=== PATIENT | female | born 1995 | race Caucasian/White ===

== ENCOUNTER 2016-05-26 12:48 | Inpatient (IN) ==
[2016-05-26 13:59] LABS: Bilirubin,Urine Negative (Negative); Blood,Urine Negative (Negative); Clarity,Urine Cloudy (Clear); Color,Urine Yellow (Yellow); Glucose,Urine (UA) Normal (Normal); Ketones,Urine Negative (Negative); Leukocyte Esterase,Urine Negative (Negative); Nitrite,Urine Negative (Negative); Protein,Urine Negative (Neg-Trace); Specific Gravity,Urine 1.016 (1.010-1.025); Urobilinogen,Urine Normal (Normal)
[2016-05-26 14:02] LABS: Bacteria,Urine Many per hpf (None-Few); Squamous Epithelial Cell,Urine Many per lpf (None-Few); WBC,Urine 15-30 per hpf (0-3)
--- NOTE | 2016-05-26 14:02 | Emergency Department Note ---
Disposition Clinical Impression: Suicidal ideation, Depression Disposition: Admitted As Inpatient Referrals: NO,PCP [Primary Care Provider] - Forms: ED Satisfaction Letter General Adult HPI - General Chief complaint: ED Psychiatric Symptoms Stated complaint: SI Time Seen by Provider: 05/26/16 13:42 Source: patient Limitations: no limitations - History of Present Illness HPI Narrative: 20-year-old female who has a history of chronic depression and reports her antidepressant medication is not working anymore. She feels suicidal. She has not injured herself in any way. She has no physical complaints. The patient denies at this time. There is no history of anxiety. No confusion. No psychosis. The patient denies chest pain shortness of breath abdominal pain vomiting or diarrhea. No back pain headache neck stiffness rash or fever reported or noted. The patient has had no falls or injuries she has not attempted to overdose. The patient denies any other acute complaints or concerns. Onset (ago): day(s) Pain Scale: 0 - Related Data Allergies Allergy/AdvReac Type Severity Reaction Status Date / Time No Known Allergies Allergy Verified 05/26/16 13:00 All systems ED: reviewed and negative except as stated. Past Medical History - Past Medical History Medical history: Reports: other (Depression) Psychiatric history: Reports: anxiety, depression, other - Social History Smoking Status: Never smoker Alcohol use: Reports: none Drug use: Reports: none Physical Exam - General Limitations: no limitations General appearance: alert - Head Head exam: atraumatic, normocephalic, normal inspection - Eye Eye exam: Present: normal appearance, PERRL, EOMI - ENT ENT exam: normal exam, normal oropharynx, mucous membranes moist - Neck Neck exam: Present: normal inspection, full ROM, trachea midline - Chest Chest inspection: Present: symmetric chest wall rise. Absent: tenderness - Respiratory Respiratory exam: Present: normal lung sounds bilaterally. Absent: respiratory distress - Cardiovascular Cardiovascular exam: Present: regular rate, normal rhythm, normal heart sounds - Abdominal Exam Abdominal exam: Present: soft, Non-Tender. Absent: tenderness, distention, guarding, rebound, rigidity - Extremities Exam Extremities exam: Present: normal inspection, full ROM, normal capillary refill. Absent: tenderness, pedal edema, joint swelling, calf tenderness - Expanded Lower Extremity Exam Neurovascular/Tendon exam: Absent: motor deficit, sensory deficit, tendon deficit - Back Exam Back exam: Present: normal inspection, full ROM. Absent: tenderness, CVA tenderness (R), CVA tenderness (L), vertebral tenderness - Neurological Exam Neurological exam: Present: alert, oriented X3, CN II-XII intact. Absent: motor sensory deficit - Psychiatric Psychiatric exam: Present: normal affect - Skin Skin exam: Present: warm, dry, intact, normal color. Absent: rash, cyanosis, diaphoresis, erythema, pallor, mottled Course Vital Signs Temperature 98.2 F 05/26/16 12:55 Pulse Rate 78 05/26/16 12:55 Respiratory Rate 16 05/26/16 12:55 Blood Pressure 112/75 05/26/16 12:55 O2 Sat by Pulse Oximetry 97 05/26/16 12:55 Temperature 98.2 F 05/26/16 12:55 Pulse Rate 78 05/26/16 12:55 Respiratory Rate 16 05/26/16 12:55 Blood Pressure 112/75 05/26/16 12:55 O2 Sat by Pulse Oximetry 97 05/26/16 12:55 Oxygen Delivery Oxygen Delivery Room Air Medical Decision Making - MDM Narrative Medical decision making narrative: The patient has a long history of depression, she seems to be more depressed and is now suicidal per history. 1A has been consulted for psychiatric evaluation. The patient is being admitted to the psychiatric service. - Lab Data Lab results reviewed: Yes I reviewed the patient's lab results. Result diagrams: 05/26/16 14:13 05/26/16 14:13 Lab Results 05/26/16 05/26/16 05/26/16 Range/Units 13:06 13:06 14:13 WBC 6.7 (4.3-11.1) K/mcL RBC 5.08 H (3.82-4.97) M/mcL Hgb 14.5 (11.5-15.4) g/dL Hct 44.6 (35.3-44.9) % MCV 87.8 (83.0-100.0) fL MCH 28.5 (28.0-33.3) pg MCHC 32.5 (31.6-35.5) g/dL RDW 12.6 (11.5-14.5) % Plt Count 268 (140-400) K/mcL MPV 11.0 (9.4-12.4) fL Immature Gran % 0.3 (0-4) % Seg Neutrophils % 60.0 % Lymphocytes % 29.4 % Monocytes % 9.6 % Eosinophils % 0.4 % Basophils % 0.3 % Neutrophils # 4.0 (1.6-8.9) K/mcL Lymphocytes # 2.0 (0.6-4.6) K/mcL Monocytes # 0.6 (0.0-1.3) K/mcL Eosinophils # 0.0 (0.0-0.6) K/mcL Basophils # 0.0 (0.0-0.2) K/mcL Sodium (136-145) mEq/L Potassium (3.5-4.5) mEq/L Chloride (98-109) mEq/L Carbon Dioxide (19-29) mEq/L BUN (7-20) mg/dL Creatinine (0.57-1.11) mg/dL Est GFR ( Amer) (> 60) Est GFR (Non-Af Amer) (> 60) BUN/Creatinine Ratio (6-26) Glucose (70-99) mg/dL Calculated Osmolality (280-300) Calcium (8.6-10.8) mg/dL Ur Specimen Adequacy See below A Urine Color Yellow (Yellow) Urine Clarity Cloudy A (Clear) Urine pH 7.0 (5.0-8.0) pH Units Ur Specific [place] 1.016 (1.010-1.025) Urine Protein Negative (Neg-Trace) mg/dL Urine Glucose (UA) Normal (Normal) mg/dL Urine Ketones Negative (Negative) mg/dL Urine Blood Negative (Negative) Urine Nitrite Negative (Negative) Urine Bilirubin Negative (Negative) Urine Urobilinogen Normal (Normal) mg/dL Ur Leukocyte Esterase Negative (Negative) Urine Microscopic RBC 0-3 (0-3) per hpf Urine Microscopic WBC 15-30 H (0-3) per hpf Ur Squamous Epith Cells Many H (None-Few) per lpf Ur Transition Epith Cell Few (None-Few) per hpf Urine Bacteria Many H (None-Few) per hpf Hyaline Casts Test Not Performed Urine Mucus Few (Few) Salicylates (15-30) mg/dL Urine Opiates Screen Negative (Ewdfno=825) ng/mL Acetaminophen (10-30) mcg/mL Ur Barbiturates Screen Negative (Wvpbqs=504) ng/mL Ur Phencyclidine Scrn Negative (Cutoff=25) ng/mL Ur Amphetamines Screen Negative (Cugoqy=1156) ng/mL U Benzodiazepines Scrn Negative (Xeodag=697) ng/mL Urine Cocaine Screen Negative (Cutoff= 300) ng/mL U Marijuana (THC) Screen Negative (Cutoff = 50) ng/mL Ethyl Alcohol (0-10) mg/dL 05/26/16 Range/Units 14:13 WBC (4.3-11.1) K/mcL RBC (3.82-4.97) M/mcL Hgb (11.5-15.4) g/dL Hct (35.3-44.9) % MCV (83.0-100.0) fL MCH (28.0-33.3) pg MCHC (31.6-35.5) g/dL RDW (11.5-14.5) % Plt Count (140-400) K/mcL MPV (9.4-12.4) fL Immature Gran % (0-4) % Seg Neutrophils % % Lymphocytes % % Monocytes % % Eosinophils % % Basophils % % Neutrophils # (1.6-8.9) K/mcL Lymphocytes # (0.6-4.6) K/mcL Monocytes # (0.0-1.3) K/mcL Eosinophils # (0.0-0.6) K/mcL Basophils # (0.0-0.2) K/mcL Sodium 139 (136-145) mEq/L Potassium 3.9 (3.5-4.5) mEq/L Chloride 105 (98-109) mEq/L Carbon Dioxide 23 (19-29) mEq/L BUN 8 (7-20) mg/dL Creatinine 0.77 (0.57-1.11) mg/dL Est GFR ( Amer) > 60 (> 60) Est GFR (Non-Af Amer) > 60 (> 60) BUN/Creatinine Ratio 10 (6-26) Glucose 81 (70-99) mg/dL Calculated Osmolality 285 (280-300) Calcium 9.4 (8.6-10.8) mg/dL Ur Specimen Adequacy Urine Color (Yellow) Urine Clarity (Clear) Urine pH (5.0-8.0) pH Units Ur Specific [place] (1.010-1.025) Urine Protein (Neg-Trace) mg/dL Urine Glucose (UA) (Normal) mg/dL Urine Ketones (Negative) mg/dL Urine Blood (Negative) Urine Nitrite (Negative) Urine Bilirubin (Negative) Urine Urobilinogen (Normal) mg/dL Ur Leukocyte Esterase (Negative) Urine Microscopic RBC (0-3) per hpf Urine Microscopic WBC (0-3) per hpf Ur Squamous Epith Cells (None-Few) per lpf Ur Transition Epith Cell (None-Few) per hpf Urine Bacteria (None-Few) per hpf Hyaline Casts Urine Mucus (Few) Salicylates < 5.0 L (15-30) mg/dL Urine Opiates Screen (Bsnaao=296) ng/mL Acetaminophen < 1.0 L (10-30) mcg/mL Ur Barbiturates Screen (Pzmchu=744) ng/mL Ur Phencyclidine Scrn (Cutoff=25) ng/mL Ur Amphetamines Screen (Petadh=6781) ng/mL U Benzodiazepines Scrn (Pbqunm=619) ng/mL Urine Cocaine Screen (Cutoff= 300) ng/mL U Marijuana (THC) Screen (Cutoff = 50) ng/mL Ethyl Alcohol < 10 (0-10) mg/dL
[2016-05-26 14:06] LABS: Amphetamine Screen,Urine Negative ng/mL (Cutoff=1000); Barbiturate Screen,Urine Negative ng/mL (Cutoff=200); Benzodiazepines Screen,Urine Negative ng/mL (Cutoff=200); Cannabinoid Screen,Urine Negative ng/mL (Cutoff = 50); Cocaine Screen,Urine Negative ng/mL (Cutoff= 300); Opiate Screen,Urine Negative ng/mL (Cutoff=300); Phencyclidine Screen,Urine Negative ng/mL (Cutoff=25)
[2016-05-26 14:15] LABS: Mucus,Urine Few (Few)
[2016-05-26 14:16] LABS: RBC,Urine 0-3 per hpf (0-3); Transitional Epi Cells,Urine Few per hpf (None-Few)
[2016-05-26 14:30] LABS: Basophils % 0.3 %; Eosinophils % 0.4 %; Hematocrit 44.6 % (35.3-44.9); Hemoglobin 14.5 g/dL (11.5-15.4); Immature Granulocytes % 0.3 % (0-4); Lymphocytes % 29.4 %; Mean Corpuscular HGB Conc 32.5 g/dL (31.6-35.5); Mean Corpuscular Hemoglobin 28.5 pg (28.0-33.3); Mean Corpuscular Volume 87.8 fL (83.0-100.0); Monocytes # 0.6 K/mcL (0.0-1.3); Monocytes % 9.6 %; Platelet Count 268 K/mcL (140-400); Red Blood Count 5.08 M/mcL (3.82-4.97); Red Cell Distribution Width 12.6 % (11.5-14.5)
[2016-05-26 14:44] LABS: Acetaminophen < 1.0 mcg/mL (10-30); BUN/Creatinine Ratio 10 (6-26); Blood Urea Nitrogen 8 mg/dL (7-20); Calcium 9.4 mg/dL (8.6-10.8); Carbon Dioxide 23 mEq/L (19-29); Chloride 105 mEq/L (98-109); Ethanol < 10 mg/dL (0-10); Glucose 81 mg/dL (70-99); Osmolality,Calculated 285 (280-300); Potassium 3.9 mEq/L (3.5-4.5); Salicylate < 5.0 mg/dL (15-30); Sodium 139 mEq/L (136-145); eGFR For African Americans > 60 (> 60); eGFR For Non-African Americans > 60 (> 60)
[2016-05-26] MEDS ORDERED: Haloperidol Lactate 5 MG/ML VIAL IM PRN (17:54)
[2016-05-26] MEDS ORDERED: MOM Conc 10 ML UD.LIQ PO PRN (17:54)
[2016-05-26] MEDS ORDERED: Mag Hydrox/Al Hydrox/Simeth 30 ML UDC PO PRN (17:54)
[2016-05-26] MEDS ORDERED: *HR* LORazepam 1 MG TABLET PO PRN (17:54)
[2016-05-26] MEDS ORDERED: Ibuprofen 400 MG TABLET PO PRN (17:54)
[2016-05-26] MEDS ORDERED: *HR* LORazepam 2 MG/ML VIAL IM PRN (17:54)
[2016-05-27] MEDS: lamoTRIgine 100 MG TABLET PO SCH (08:58)
--- NOTE | 2016-05-27 15:12 | Psychiatry History & Physical ---
Date of Encounter: 05/28/16 Time of Encounter: 15:10 History of Present Illness Patient Stated Chief Complaint: depressed and suicidal Medicare Admission Attestation: For traditional Medicare patients the provided hospital inpatient services are reasonable and necessary and in the case of services not specified as inpatient -only under 42 CFR 419.22 (n), that they are appropriately provided as inpatient services in accordance 42 CFR 412.3. For Critical Access Hospital the patient may reasonably be expected to be discharged or transferred to a hospital within 96 hours after admission to the Critical Access Hospital. Admitted From: Emergency Dept Plans for Post Hospital Care: Home History of Present Illness: Ms. Del Castillo is a 20 year old female , this was the first psychiatric admission for this 20 years old female, she lists several stressors leading to her admission. She states she had a breakup with her boyfriend a week and half ago, she is dependent on him and this was devastating to her. Currently she lives with her mother and she does not get along well with mother. She reports feeling hopeless and having suicidal suicidal thoughts without plan. She was given venlafaxine and Lamictal by her primary care physician for the past 2 months and she felt better on this medication but now feels it is not adequate. She is complaining of poor sleep and anxiety about being in the hospital. Past Med Surg Social Fam HX - Past Medical History Medical history: other - Social History Smoking Status: Never smoker Smokeless Tobacco Status: No Alcohol use: none Drug use: none Medications & Allergies Lamotrigine [Lamictal] 100 mg PO DAILY 05/26/16 [History] Venlafaxine XR (24 HR) [Effexor XR] 75 mg PO DAILY 05/26/16 [History] Allergies No Known Allergies Allergy (Verified 05/26/16 13:00) Review of Systems Psychiatric: Reports: anxiety, abnormal sleep pattern, suicidal ideation, change in appetite, hopelessness, mood swings Mental Status Exam Patient orientation: Yes Person, Yes Time, Yes Place, Yes Circumstance Level of alertness: Alert Patient appearance: Appropriate, Well-nourished Behavior: cooperative, anxious Psychomotor activity: Slowed Eye contact: Minimal Contact Mood description: Depressed, Anxious Patient description of mood: Depressed and anxious this is her first hospitalization and she is uncomfortable. But she is interested in getting help and her medication and just. Affect description: congruent with mood, constricted Speech pattern: Normal rate, Normal rhythm, Normal tone, Coherent Speech volume: Soft/Quiet Thought process: Intact, Logical, Linear, Goal Oriented Thought content: Yes Suicidal ideation, Yes Obsessive thoughts Attention span: Capable of Focused Attention Memory description: Grossly Intact Patient reliability: Reliable Historian Intelligence estimate: Average Judgment: Good Insight: Full Results - Vital Signs Vital signs: Temp Pulse Resp BP Pulse Ox 97.9 F 111 18 113/82 97 05/27/16 09:00 05/27/16 09:00 05/27/16 09:00 05/27/16 09:00 05/26/16 12:55 - Labs Labs: Laboratory Last Values WBC 6.7 K/mcL (4.3-11.1) 05/26/16 14:13 RBC 5.08 M/mcL (3.82-4.97) H 05/26/16 14:13 Hgb 14.5 g/dL (11.5-15.4) 05/26/16 14:13 Hct 44.6 % (35.3-44.9) 05/26/16 14:13 MCV 87.8 fL (83.0-100.0) 05/26/16 14:13 MCH 28.5 pg (28.0-33.3) 05/26/16 14:13 MCHC 32.5 g/dL (31.6-35.5) 05/26/16 14:13 RDW 12.6 % (11.5-14.5) 05/26/16 14:13 Plt Count 268 K/mcL (140-400) 05/26/16 14:13 MPV 11.0 fL (9.4-12.4) 05/26/16 14:13 Immature Gran % 0.3 % (0-4) 05/26/16 14:13 Seg Neutrophils % 60.0 % 05/26/16 14:13 Lymphocytes % 29.4 % 05/26/16 14:13 Monocytes % 9.6 % 05/26/16 14:13 Eosinophils % 0.4 % 05/26/16 14:13 Basophils % 0.3 % 05/26/16 14:13 Neutrophils # 4.0 K/mcL (1.6-8.9) 05/26/16 14:13 Lymphocytes # 2.0 K/mcL (0.6-4.6) 05/26/16 14:13 Monocytes # 0.6 K/mcL (0.0-1.3) 05/26/16 14:13 Eosinophils # 0.0 K/mcL (0.0-0.6) 05/26/16 14:13 Basophils # 0.0 K/mcL (0.0-0.2) 05/26/16 14:13 Sodium 139 mEq/L (136-145) 05/26/16 14:13 Potassium 3.9 mEq/L (3.5-4.5) 05/26/16 14:13 Chloride 105 mEq/L (98-109) 05/26/16 14:13 Carbon Dioxide 23 mEq/L (19-29) 05/26/16 14:13 BUN 8 mg/dL (7-20) 05/26/16 14:13 Creatinine 0.77 mg/dL (0.57-1.11) 05/26/16 14:13 Est GFR ( Amer) > 60 (> 60) 05/26/16 14:13 Est GFR (Non-Af Amer) > 60 (> 60) 05/26/16 14:13 BUN/Creatinine Ratio 10 (6-26) 05/26/16 14:13 Glucose 81 mg/dL (70-99) 05/26/16 14:13 Calculated Osmolality 285 (280-300) 05/26/16 14:13 Calcium 9.4 mg/dL (8.6-10.8) 05/26/16 14:13 Ur Specimen Adequacy See below A 05/26/16 13:06 Urine Color Yellow (Yellow) 05/26/16 13:06 Urine Clarity Cloudy (Clear) A 05/26/16 13:06 Urine pH 7.0 pH Units (5.0-8.0) 05/26/16 13:06 Ur Specific [place] 1.016 (1.010-1.025) 05/26/16 13:06 Urine Protein Negative mg/dL (Neg-Trace) 05/26/16 13:06 Urine Glucose (UA) Normal mg/dL (Normal) 05/26/16 13:06 Urine Ketones Negative mg/dL (Negative) 05/26/16 13:06 Urine Blood Negative (Negative) 05/26/16 13:06 Urine Nitrite Negative (Negative) 05/26/16 13:06 Urine Bilirubin Negative (Negative) 05/26/16 13:06 Urine Urobilinogen Normal mg/dL (Normal) 05/26/16 13:06 Ur Leukocyte Esterase Negative (Negative) 05/26/16 13:06 Urine Microscopic RBC 0-3 per hpf (0-3) 05/26/16 13:06 Urine Microscopic WBC 15-30 per hpf (0-3) H 05/26/16 13:06 Ur Squamous Epith Cells Many per lpf (None-Few) H 05/26/16 13:06 Ur Transition Epith Cell Few per hpf (None-Few) 05/26/16 13:06 Urine Bacteria Many per hpf (None-Few) H 05/26/16 13:06 Hyaline Casts Test Not Performed 05/26/16 13:06 Urine Mucus Few (Few) 05/26/16 13:06 Salicylates < 5.0 mg/dL (15-30) L 05/26/16 14:13 Urine Opiates Screen Negative ng/mL (Lbitbv=334) 05/26/16 13:06 Acetaminophen < 1.0 mcg/mL (10-30) L 05/26/16 14:13 Ur Barbiturates Screen Negative ng/mL (Vxqemr=694) 05/26/16 13:06 Ur Phencyclidine Scrn Negative ng/mL (Cutoff=25) 05/26/16 13:06 Ur Amphetamines Screen Negative ng/mL (Swtllr=3372) 05/26/16 13:06 U Benzodiazepines Scrn Negative ng/mL (Nmzwdn=438) 05/26/16 13:06 Urine Cocaine Screen Negative ng/mL (Cutoff= 300) 05/26/16 13:06 U Marijuana (THC) Screen Negative ng/mL (Cutoff = 50) 05/26/16 13:06 Ethyl Alcohol < 10 mg/dL (0-10) 05/26/16 14:13 Assessment and Plan (1) Depression Current visit: Yes Status: Acute Plan: Encourage participation in unit milieu, Monitor sleep Risks, benefits, side effects, alternatives discussed w/pt: Yes Patient agreeable to treatment : Yes Code(s): F32.9 - Major depressive disorder, single episode, unspecified
[2016-05-27] MEDS: Venlafaxine XR (24 HR) 150 MG CAP.ER.24H PO SCH (15:32)
[2016-05-28] MEDS: lamoTRIgine 100 MG TABLET PO SCH (08:57)
[2016-05-28] MEDS: Venlafaxine XR (24 HR) 150 MG CAP.ER.24H PO SCH (08:57)
--- NOTE | 2016-05-28 16:26 | Psychiatry Progress Note ---
Date of Encounter: 05/28/16 Time of Encounter: 16:00 Subjective Interval history: Patient is seen for follow-up. She reports significant improvement with increase of venlafaxine and one 50 mg daily also she is not sedated after reducing the dose of Seroquel to 25 mg at night and she will continue to take Lamictal 100 mg. She is participating in activities and groups also she is making plans for follow-up after discharge with appointment for medication and therapy. Denies any side effects and denies any problem with sleep. Review of Systems Psychiatric: Reports: anxiety, abnormal sleep pattern, change in appetite, mood swings. Denies: suicidal ideation, hopelessness Objective: Exam Patient orientation: Yes Person, Yes Time, Yes Place, Yes Circumstance Level of alertness: Alert Patient appearance: Appropriate, Well Groomed, Well-nourished Behavior: cooperative, anxious Psychomotor activity: Normal Eye contact: Maintains Eye Contact Mood description: Euthymic/stable, Anxious Affect description: congruent with mood Speech pattern: Normal rate, Normal rhythm, Normal tone, Coherent Speech volume: Soft/Quiet Thought process: Intact, Logical, Linear, Goal Oriented Thought content: No Suicidal ideation, Yes Obsessive thoughts Perceptual disturbances: No Auditory hallucinations, No Visual hallucinations Judgment: Good Insight: Full Results - Vital Signs Vital Signs: Temp Pulse Resp BP Pulse Ox 97.5 F L 107 16 126/79 97 05/28/16 09:00 05/28/16 09:00 05/28/16 09:00 05/28/16 09:00 05/26/16 12:55 Assessment and Plan (1) Depression Current visit: Yes Status: Acute Plan: Encourage participation in unit milieu, Group Therapy, Monitor sleep Risks, benefits, side effects, alternatives discussed w/pt: Yes Patient agreeable to treatment: Yes Code(s): F32.9 - Major depressive disorder, single episode, unspecified Consult Discharge Plan - Plan Referrals: [facility] [Outside] - 06/17/16 10:00 am (The above appointment is with Erika Cruz for counseling. Please arrive 10 minutes early for all appointments to complete the check-in process. Please bring your insurance card or HCAP award letter, and photo ID to this appointment. If you are unable to keep this appointment, 24 hour business notice of cancellation is expected. If you miss your new patient appointment, you cannot be re-scheduled in this practice. The [facility] is the 1st building behind [facility] in [place], [place]. ) [facility] [place] [Outside] - 07/29/16 8:45 am (The above appointment is with Nichole Hankins, psychiatric provider. Please arrive 15 minutes early to complete paperwork. Please bring your insurance card, photo ID and medications in their original bottles. If you do not have insurance, bring proof of income to apply for the sliding fee scale. If you are unable to keep this appointment, 24 hour business notice of cancellation is expected. )
[2016-05-29] MEDS: Venlafaxine XR (24 HR) 150 MG CAP.ER.24H PO SCH (08:59)
[2016-05-29] MEDS: lamoTRIgine 100 MG TABLET PO SCH (08:59)
[2016-05-29 09:10] VITALS: BP 102/71
--- NOTE | 2016-05-29 11:27 | Discharge Summary ---
Date of Encounter: 05/29/16 Time of Encounter: 11:25 Diagnosis - Discharge Diagnosis (1) Depression Priority: Primary Status: Acute Qualifiers: Depression Type: other depression Qualified Code(s): F32.89 - Other specified depressive episodes Code(s): F32.9 - Major depressive disorder, single episode, unspecified Medications - Discharge Medications Prescriptions: Quetiapine Fumarate [Seroquel] 25 mg PO HS PRN #30 tablet PRN Reason: Insomnia Lamotrigine [Lamictal] 100 mg PO DAILY 05/26/16 [History] Venlafaxine XR (24 HR) [Effexor XR] 75 mg PO DAILY 05/26/16 [History] Quetiapine Fumarate [Seroquel] 25 mg PO HS PRN #30 tablet 05/29/16 [Rx] Allergies No Known Allergies Allergy (Verified 05/26/16 13:00) Provider Date of admission: 05/26/16 17:15 Primary care physician: PCP NO Discharging clinician: Guero Rhoades Assessment and Plan - Patient/Caregiver Discharge Instructions Activity: resume usual activities as tolerated Diet: regular diet - Follow up Plan Follow up with: [facility] [Outside] - 06/17/16 10:00 am (The above appointment is with Erika Cruz for counseling. Please arrive 10 minutes early for all appointments to complete the check-in process. Please bring your insurance card or HCAP award letter, and photo ID to this appointment. If you are unable to keep this appointment, 24 hour business notice of cancellation is expected. If you miss your new patient appointment, you cannot be re-scheduled in this practice. The [facility] is the [facility] in [place], [place]. ) [facility] [place] [Outside] - 07/29/16 8:45 am (The above appointment is with Nichole Hankins, psychiatric provider. Please arrive 15 minutes early to complete paperwork. Please bring your insurance card, photo ID and medications in their original bottles. If you do not have insurance, bring proof of income to apply for the sliding fee scale. If you are unable to keep this appointment, 24 hour business notice of cancellation is expected. ) Rory Le Jr, MD [Non-Partnered Physician] - 06/07/16 9:00 am (The above appointment is with Dr. Le.) Overall status at discharge: Stable Disposition: Home Health Service Hospital Course Hospital course: Ms. Del Castillo is a 20 year old female admitted for depression with suicidal ideation. Patient was under significant stress after breaking up with boyfriend also she dropped out of college because of her anxiety she was having also some family issues and stress was mother felt helpless and hopeless and started having thoughts of suicide. Patient was started on medication by primary care physician to months prior to admission including venlafaxine and rectal some improvements but she felt it stopped working. On admission her medication review and evaluated and venlafaxine was increased also Seroquel was reduced course of sedation Lamictal was continued patient reported these medication changes worked well and she felt more optimistic and depressed sleep was adjusted she was motivated and looking forward to back to school for a job also had a visit was 100 112 and she became more motivated to be discharged. Prior to discharge patient denied any intense self-harm she showed good insight and was future oriented. - Time Spent with Patient Total time spent providing and/or coordinating discharge services: Less than 30 minutes Quality - Multiple Antipsychotics Patient discharged on 2 or more antipsychotic medications: No Procedures - Procedures Procedures: Medication Management, Crisis Stabilization, Supportive Therapy, Group Therapy, Psychoeducational Therapy Mental Status Exam - Mental Status Exam Patient orientation: Yes Person, Yes Time, Yes Place, Yes Circumstance Level of alertness: Alert Patient appearance: Appropriate, Well Groomed, Well-nourished Behavior: cooperative, anxious Psychomotor activity: Normal Eye contact: Maintains Eye Contact Mood description: Euthymic/stable, Anxious Affect description: congruent with mood Speech pattern: Normal rate, Normal rhythm, Normal tone, Coherent Speech Volume: Soft/Quiet Thought process: Intact, Logical, Linear, Goal Oriented Thought Content: No Suicidal ideation, Yes Obsessive thoughts Perceptual Disturbances: No Auditory hallucinations, No Visual hallucinations Judgment: Good Insight: Full
== END 2016-05-29 14:10 | disposition home health service (06) | DRG 881 ==
LOC: EMEROO 12:48 → 1ANU 17:15 → SUATTDRO 17:15 → 1ANU 17:44
PROVIDERS: ADMIT Psychiatry & Neurology Psychiatry; ATTEND Psychiatry & Neurology Psychiatry

== ENCOUNTER 2016-06-03 16:03 | Inpatient (IN) ==
[2016-06-03 16:32] LABS: Basophils % 0.2 %; Eosinophils % 0.3 %; Hemoglobin 14.3 g/dL (11.5-15.4); Immature Granulocytes % 0.3 % (0-4); Lymphocytes # 0.8 K/mcL (0.6-4.6); Lymphocytes % 7.7 %; Mean Corpuscular HGB Conc 32.5 g/dL (31.6-35.5); Mean Corpuscular Hemoglobin 28.8 pg (28.0-33.3); Mean Corpuscular Volume 88.5 fL (83.0-100.0); Mean Platelet Volume 10.4 fL (9.4-12.4); Monocytes # 0.7 K/mcL (0.0-1.3); Monocytes % 6.3 %; Neutrophils # 9.4 K/mcL (1.6-8.9); Platelet Count 239 K/mcL (140-400); Red Blood Count 4.97 M/mcL (3.82-4.97); Segmented Neutrophils % 85.2 %
[2016-06-03 16:44] LABS: BUN/Creatinine Ratio 6 (6-26); Blood Urea Nitrogen 9 mg/dL (7-20); Carbon Dioxide 17 mEq/L (19-29); Chloride 106 mEq/L (98-109); Glucose 79 mg/dL (70-99); Osmolality,Calculated 282 (280-300); Potassium 4.1 mEq/L (3.5-4.5); Sodium 137 mEq/L (136-145); eGFR For African Americans 57 (> 60); eGFR For Non-African Americans 47 (> 60)
[2016-06-03] MEDS ORDERED: 0.9 % Sodium Chloride 1,000 ML IV ONE ×2 (16:46→17:43)
--- NOTE | 2016-06-03 16:56 | Emergency Department Note ---
Overdose - MDM Narrative Medical decision making narrative: 20-year-old female hypotension tachycardia, potential overdose polysubstance including benzodiazepines SNRI, Seroquel, Lamictal, NSAIDs, admitted to medicine service to ICU in serious condition - Differential Diagnosis Likely: suicide attempt by multiple drug overdose, intentional overdose - Medical Records Medical records reviewed: Yes I reviewed the patient's medical records. - Lab Data Lab results reviewed: Yes I reviewed the patient's lab results. Result diagrams: 06/03/16 16:22 06/03/16 16:22 Lab Results 06/03/16 06/03/16 06/03/16 Range/Units 16:22 16:22 16:22 WBC 11.0 (4.3-11.1) K/mcL RBC 4.97 (3.82-4.97) M/mcL Hgb 14.3 (11.5-15.4) g/dL Hct 44.0 (35.3-44.9) % MCV 88.5 (83.0-100.0) fL MCH 28.8 (28.0-33.3) pg MCHC 32.5 (31.6-35.5) g/dL RDW 13.0 (11.5-14.5) % Plt Count 239 (140-400) K/mcL MPV 10.4 (9.4-12.4) fL Immature Gran % 0.3 (0-4) % Seg Neutrophils % 85.2 % Lymphocytes % 7.7 % Monocytes % 6.3 % Eosinophils % 0.3 % Basophils % 0.2 % Neutrophils # 9.4 H (1.6-8.9) K/mcL Lymphocytes # 0.8 (0.6-4.6) K/mcL Monocytes # 0.7 (0.0-1.3) K/mcL Eosinophils # 0.0 (0.0-0.6) K/mcL Basophils # 0.0 (0.0-0.2) K/mcL Sodium 137 (136-145) mEq/L Potassium 4.1 (3.5-4.5) mEq/L Chloride 106 (98-109) mEq/L Carbon Dioxide 17 L (19-29) mEq/L BUN 9 (7-20) mg/dL Creatinine 1.43 H (0.57-1.11) mg/dL Est GFR ( Amer) 57 L (> 60) Est GFR (Non-Af Amer) 47 L (> 60) BUN/Creatinine Ratio 6 (6-26) Glucose 79 (70-99) mg/dL Calculated Osmolality 282 (280-300) Calcium 9.0 (8.6-10.8) mg/dL Phosphorus 2.7 (2.3-4.7) mg/dL Magnesium 2.6 H (1.7-2.2) mg/dL Urine Color (Yellow) Urine Clarity (Clear) Urine pH (5.0-8.0) pH Units Ur Specific [place] (1.010-1.025) Urine Protein (Neg-Trace) mg/dL Urine Glucose (UA) (Normal) mg/dL Urine Ketones (Negative) mg/dL Urine Blood (Negative) Urine Nitrite (Negative) Urine Bilirubin (Negative) Urine Urobilinogen (Normal) mg/dL Ur Leukocyte Esterase (Negative) Salicylates < 5.0 L (15-30) mg/dL Urine Opiates Screen (Pdulga=686) ng/mL Acetaminophen < 1.0 L (10-30) mcg/mL Ur Barbiturates Screen (Lybpgh=216) ng/mL Ur Phencyclidine Scrn (Cutoff=25) ng/mL Ur Amphetamines Screen (Wthqbf=9827) ng/mL U Benzodiazepines Scrn (Gusvpa=325) ng/mL Urine Cocaine Screen (Cutoff= 300) ng/mL U Marijuana (THC) Screen (Cutoff = 50) ng/mL Ethyl Alcohol < 10 (0-10) mg/dL 06/03/16 06/03/16 Range/Units 17:45 17:45 WBC (4.3-11.1) K/mcL RBC (3.82-4.97) M/mcL Hgb (11.5-15.4) g/dL Hct (35.3-44.9) % MCV (83.0-100.0) fL MCH (28.0-33.3) pg MCHC (31.6-35.5) g/dL RDW (11.5-14.5) % Plt Count (140-400) K/mcL MPV (9.4-12.4) fL Immature Gran % (0-4) % Seg Neutrophils % % Lymphocytes % % Monocytes % % Eosinophils % % Basophils % % Neutrophils # (1.6-8.9) K/mcL Lymphocytes # (0.6-4.6) K/mcL Monocytes # (0.0-1.3) K/mcL Eosinophils # (0.0-0.6) K/mcL Basophils # (0.0-0.2) K/mcL Sodium (136-145) mEq/L Potassium (3.5-4.5) mEq/L Chloride (98-109) mEq/L Carbon Dioxide (19-29) mEq/L BUN (7-20) mg/dL Creatinine (0.57-1.11) mg/dL Est GFR ( Amer) (> 60) Est GFR (Non-Af Amer) (> 60) BUN/Creatinine Ratio (6-26) Glucose (70-99) mg/dL Calculated Osmolality (280-300) Calcium (8.6-10.8) mg/dL Phosphorus (2.3-4.7) mg/dL Magnesium (1.7-2.2) mg/dL Urine Color Yellow (Yellow) Urine Clarity Cloudy A (Clear) Urine pH 5.5 (5.0-8.0) pH Units Ur Specific Conger 1.008 L (1.010-1.025) Urine Protein Trace (Neg-Trace) mg/dL Urine Glucose (UA) Normal (Normal) mg/dL Urine Ketones Negative (Negative) mg/dL Urine Blood Small H (Negative) Urine Nitrite Negative (Negative) Urine Bilirubin Negative (Negative) Urine Urobilinogen Normal (Normal) mg/dL Ur Leukocyte Esterase Negative (Negative) Salicylates (15-30) mg/dL Urine Opiates Screen Negative (Thfkhd=430) ng/mL Acetaminophen (10-30) mcg/mL Ur Barbiturates Screen Negative (Kwecqr=352) ng/mL Ur Phencyclidine Scrn Negative (Cutoff=25) ng/mL Ur Amphetamines Screen Negative (Eeqzhs=9626) ng/mL U Benzodiazepines Scrn Positive H (Esegfu=064) ng/mL Urine Cocaine Screen Negative (Cutoff= 300) ng/mL U Marijuana (THC) Screen Negative (Cutoff = 50) ng/mL Ethyl Alcohol (0-10) mg/dL - Radiology Data Radiology results reviewed: Yes I reviewed the patient's radiology results. - EKG Data EKG attestation: Yes I reviewed and interpreted this EKG. EKG shows normal: sinus rhythm Rate: tachycardia (Tachycardia ventricular rate 120 MT 182 QRS 97 QTC 498) QTc: prolonged (498) Overdose HPI - General Chief Complaint: ED Overdose Stated Complaint: Intentional Overdose. Time Seen by Provider: 06/03/16 16:05 Source: patient, EMS Limitations: no limitations Nursing Notes Reviewed: Yes Vital Signs Reviewed: Yes - History of Present Illness HPI Narrative: 20-year-old female with overdose on approximately 60 pills of Lamotrigine 25 mg , 15-0.5 mg Xanax, 25- 25 mg Seroquel, and 30 venlafaxine 75 mg extended release , she was recently released from 1 day last week, reports suicidal ideation, she is very somnolent on exam alert and oriented 2, history is mostly obtained from her mother is at bedside. They state that she take this medicine at approximately 2 AM, however they are skeptical of this exact time that she took medicine. Also she took "half a bottle of ibuprofen 200 mg tabs" unsure exactly pills were not Pt Subjective Complaint: intentional overdose Onset (ago): hour(s) (10) Timing confirmed by: family member Intent: suicide attempt Associated symptoms: depression Treatments Prior to Arrival: none - Related Data Home Medications Medication Instructions Recorded Confirmed Lamotrigine [Lamictal] 100 mg PO DAILY 05/26/16 05/26/16 Venlafaxine XR (24 HR) [Effexor XR] 75 mg PO DAILY 05/26/16 05/26/16 Previous Rx's Medication Instructions Recorded Quetiapine Fumarate [Seroquel] 25 mg PO HS PRN #30 tablet 05/29/16 Allergies Allergy/AdvReac Type Severity Reaction Status Date / Time No Known Allergies Allergy Verified 05/26/16 13:00 All systems ED: reviewed and negative except as stated. Constitutional: Reports: weakness. Denies: fever, chills, weight change Eyes: Denies: eye pain, eye discharge, vision change ENT ED: Denies: ear pain, throat pain, dental pain, hearing loss, epistaxis, congestion, dysphagia Cardiovascular: Denies: chest pain, palpitations, dyspnea on exertion, edema, syncope Respiratory: Denies: cough, dyspnea, wheezes, hemoptysis, stridor Gastrointestinal: Reports: nausea. Denies: abdominal pain, vomiting, diarrhea, constipation, hematemesis, melena, hematochezia Musculoskeletal: Denies: back pain, neck pain, arthralgia, myalgia Integumentary: Denies: rash, abrasion, lesions Neurological: Denies: headache, weakness, numbness, paresthesias, confusion, abnormal gait, vertigo Psychiatric: Reports: suicidal thoughts, other (Suicidal attempt) Endocrine: Denies: fatigue Hematological/Lymphatic: Denies: easy bleeding, easy bruising Allergic/Immunologic: Denies: facial swelling, urticaria Past Medical History - Past Medical History Attestation: Yes The following information was validated with the patient. Source: patient Medical history: Reports: other Psychiatric history: Reports: anxiety, depression, other - Social History Smoking Status: Never smoker Smokeless Tobacco Status: No Alcohol use: Reports: occasionally Drug use: Reports: none Physical Exam General: Alert and oriented 2, somnolent on exam. Head: NCAT, no lesions Eyes: sclera anicteric, conjunctiva normal, PERRLA bilaterally, EOMI Bilaterally Ears: normal inspection, external ear wnl Nose: nasal septum nondeviated, sinuses nontender Throat: good dentition, mucous membranes moist dry Neck: no lymphadenopathy, trachea midline no deviation, no JVD Resp: CTA bilaterally, no resp distress, symmetric chest rise, no wheezes, rales , or rhonchi bilaterally CV: RRR, normal S1 and S2, no m/g/r, Pulses +2 Rad, +2 DP/PT Abdomen: Soft, tenderness of palpation diffusely no hepatosplenomegaly, no hernias, Negative Rovsing's sign, Negative Uriarte's sign Back: normal inspection, no tenderness to palpation, Negative CVA tenderness bilaterally Neuro: A&O3, CN II-XII grossly intact bilaterally, no motor or sensory deficits bilaterally, gait normal, GCS 15 [id number] Ext: normal inspection, symmetric Active and Passive ROM UE and LE bilaterally , no pedal edema bilaterally Psych: normal mood, normal affect Skin: No rashes, skin warm, dry, intact - General Limitations: no limitations General appearance: alert, in no apparent distress Course Course Narrative: 20-year-old female with intentional overdose polysubstance, contacting poison control, airway secured at this time with nasal cannula, she has had in her percent, her pressure is very hypotensive, A , concerning for hypoxia and hypotension, supportive care basic ingestion workup with salicylates of ethanol significant levels, BMP CBC [place], - Reevaluation(s) Reevaluation #1: Spoke with poison control, they were given 2 g of IV mag, second peripheral IV liter fluid bolus given her hypotension, titrated to map greater than 65, supporting her respirations are now nasal cannula oxygen, control call back in 2 hours for reassessment of her Tylenol salicylate levels repeat mag, they are sending magnesium protocol to the emergency department as well. Candidate likely for ICU admission given her increased somnolence and vital signs EKG, Time: 16:30 Reevaluation #2: After 1 L bolus, patient's blood pressure still 88/60, will give an additional liter of fluid, and admitted to the medicine service for ICU or stepdown care, further observation and supportive management of her hypotension and respiratory status hospitalist paged Time: 17:49 Reevaluation #3: Admitted to ICU Dr Stacy conde. Time: 18:16 Vital Signs Temperature 98.1 F 06/03/16 16:04 Pulse Rate 109 06/03/16 16:04 Respiratory Rate 16 06/03/16 16:04 Blood Pressure 94/59 06/03/16 16:04 O2 Sat by Pulse Oximetry 100 06/03/16 16:04 Temperature 98.1 F 06/03/16 16:04 Pulse Rate 101 06/03/16 18:00 Respiratory Rate 16 06/03/16 18:00 Blood Pressure 97/77 06/03/16 18:00 O2 Sat by Pulse Oximetry 100 06/03/16 18:00 Oxygen Delivery Oxygen Delivery Nasal Cannula Critical Care Time Critical Care Time: Yes Total Critical Care Time: 35 Attestation: Critical care time managing patient's overdose and hypotension 35 minutes. Disposition Clinical Impression: Suicidal ideation Drug overdose Qualifiers: Encounter type: initial encounter Injury intent: intentional self-harm Qualified Code(s): T50.902A - Poisoning by unspecified drugs, medicaments and biological substances, intentional self-harm, initial encounter Disposition: Admitted As Inpatient Condition: Serious Time of Disposition: 17:49 Attestation Statement - Attestation Attestation: Patient was seen with resident physician. I reviewed the history, physical, assessment and plan, and agree with the findings. I also personally evaluated this patient and had [id number] time with this patient. 20-year-old female presents to the emergency department after multiple drug ingestion. Patient claims that she took the medication approximately 2 AM, but parents think that it may have been more recently than that. Patient was just discharged from [facility] for depression. She also comes in today with suicidal ideation and significant suicidal attempt. On examination patient is very groggy she is hypotensive and tachycardic. Her heart sounds tachycardic. Her lungs are clear. Abdomen is soft and nontender. Extremities are unremarkable. We will do a complete toxicologic workup will treat with aggressive IV rehydration to try and address the blood pressure. We did contact poison control who recommended 2 g of magnesium because her QT on EKG was at the upper limits of what acceptable Emmanuel on the medications that she took. We will admit patient to the intensive care unit once her initial workup is complete and she is a little bit more stable with psychiatry evaluation take place during the hospitalization. We aggressively attempted to correct patient's hypotension with fluid management, did keep her systolic blood pressure in the 90s occasionally the low 100s. Case was discussed with the hospitalist and all parties agree that the intensive care unit was the best place to monitor her condition and overdose. I agree with resident physician assessment and plan. Critical care time for this patient 35 minutes.
[2016-06-03 17:03] LABS: Magnesium 2.6 mg/dL (1.7-2.2); Phosphorous 2.7 mg/dL (2.3-4.7)
[2016-06-03 17:21] LABS: Acetaminophen < 1.0 mcg/mL (10-30); Ethanol < 10 mg/dL (0-10); Salicylate < 5.0 mg/dL (15-30)
[2016-06-03] MEDS ORDERED: 0.9 % Sodium Chloride 1,000 ML IV SCH ×2 (17:30→19:58)
[2016-06-03 17:54] LABS: Bilirubin,Urine Negative (Negative); Blood,Urine Small (Negative); Clarity,Urine Cloudy (Clear); Color,Urine Yellow (Yellow); Glucose,Urine (UA) Normal (Normal); Ketones,Urine Negative (Negative); Leukocyte Esterase,Urine Negative (Negative); Nitrite,Urine Negative (Negative); PH,Urine 5.5 pH Units (5.0-8.0); Protein,Urine Trace mg/dL (Neg-Trace); Specific Gravity,Urine 1.008 (1.010-1.025); Urobilinogen,Urine Normal (Normal)
[2016-06-03 17:56] LABS: RBC,Urine 0-3 per hpf (0-3); Squamous Epithelial Cell,Urine Many per lpf (None-Few)
[2016-06-03 18:01] LABS: Amphetamine Screen,Urine Negative ng/mL (Cutoff=1000); Barbiturate Screen,Urine Negative ng/mL (Cutoff=200); Benzodiazepines Screen,Urine Positive ng/mL (Cutoff=200); Cannabinoid Screen,Urine Negative ng/mL (Cutoff = 50); Cocaine Screen,Urine Negative ng/mL (Cutoff= 300); Opiate Screen,Urine Negative ng/mL (Cutoff=300); Phencyclidine Screen,Urine Negative ng/mL (Cutoff=25)
[2016-06-03 18:21] LABS: Amorphous Sediment,Urine Many (Few); Hyaline Casts,Urine Few per lpf (None-Few)
[2016-06-03 18:22] LABS: Bacteria,Urine Moderate per hpf (None-Few); Granular Casts,Urine Moderate per lpf (None Seen); White Blood Cell Casts,Urine Many per lpf (None Seen)
[2016-06-03] MEDS ORDERED: Naloxone 0.4 MG/ML INJ IVP PRN (20:08)
[2016-06-03] MEDS ORDERED: *HR* LORazepam 2 MG/ML VIAL IVP PRN (20:16)
[2016-06-03 20:38] LABS: ABG Base Excess -4.3 mEq/L (-2.0 to 3.0); ABG HCO3 22.1 mEQ/L (21-27); ABG Oxygen Saturation 97 % (95-98); ABG PCO2 45 mmHg (35-45); ABG PO2 100 mmHg (85-104); ABG TCO2 23.5 mEq/L (20-26)
--- NOTE | 2016-06-03 20:43 | Internal Med History&Physical ---
Date of Encounter: 06/03/16 Time of Encounter: 18:30 Assessment and Plan (1) Drug overdose Current visit: Yes Status: Acute 1 patient has been previously treated for depression and was released from [facility] 1 a proximally 6 days ago. She ingested multiple substances including benzodiazepines and alcohol NSAIDs and Tylenol. Poison control was notified and recommended giving magnesium for prolonged QT which was given in the ER 2 we will continue to monitor QTC-daily EKG-we will place patient on continuous cardiac monitoring [address] on seizure precautions and Ativan as needed for seizure activity 4 aspiration precautions 5 (2) Metabolic acidosis due to ingestion of drugs or chemicals Current visit: Yes Status: Acute 1 gap is 14 most likely related to ingestion of multiple substances. Will aggressively hydrate overnight recheck lab work in the a.m. (3) LYNNE (acute kidney injury) Current visit: Yes Status: Acute 1. Patient's creatinine 1.43 with bicarbonate 17 -most likely related to substance ingestion-we will aggressively rehydrate with IV fluids overnight into to monitor creatinine closely 2 strict intake and Output Will Place Champagne catheter 3 we will avoid nephrotoxins, no NSAIDs (4) Suicidal ideation Current visit: Yes Status: Acute 1 patient has past history of depression according to family she has had past suicidal ideations with plans of overdose. When asked if this was intentional she states she he yes. We will place on suicide observation 2 once patient is medically cleared will be seen by psych for possible placement (5) Depression Current visit: No Status: Acute 1 recently released from 1 a for treatment of depression we will hold all antidepressants at this time and have patient reevaluated by psychiatry Qualifiers: Depression Type: other depression Qualified Code(s): F32.89 - Other specified depressive episodes (6) DVT prophylaxis Current visit: Yes Status: Acute 1 Lovenox for DVT prophylaxis Internal Medicine - H&P: HPI Chief complaint: OD Admitted From: Home Plans for Post Hospital Care: Transfer Psych Facility History of present illness: Ms. 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 Information obtained from medical records as well as mother who is at bedside to 2 patient decreased LOC. Integumentary patient was admitted to psychiatric facility at [facility] last Friday for depression. She was kept there until Friday and was discharged home with prescriptions. According to mother patient was doing well and seemed happy The mother states that she keeps the patient prescriptions in her bedroom away from the patient however she thinks maybe the patient entered into her room during the night took the medications. She did not see the patient throughout the morning and thought she was still asleep. She heard a loud noise in the bathroom and found the patient slumped over. The patient claims she took all her medication as well as drink some alcohol and took Tylenol and ibuprofen. The patient claims she did this in 2 AM however the mother found her approximately 2:30 in the afternoon. She was taken to the ER for evaluation according to ER records patient presented very groggy hypertensive and tachycardic. Tox screen was positive for benzodiazepines She was treated with aggressive IV rehydration. According to ED records poison control was notified and recommended giving 2 g of magnesium because her QT on her EKG was at the upper limits. She was admitted for further workup and evaluation. Upon assessment in the ED the patient is somnolent arouses to painful stimuli oriented to name. When asked why she was at the hospital she replied because I took pills. Asked if she was trying to harm herself she said yes Her pupils are dilated and has difficulty following commands. No seizure activity noted at this time. She is sinus tach on the monitor to be noted. Blood pressure is 100 systolic she is maintaining her airway with O2 sat 9798% on 2 L nasal cannula. She has been transported to ICU for further monitoring I reviewed the case with Dr. Sosa who agrees with the plan Past Med Surg Social Fam HX - Past Medical History Medical history: other Psychiatric history: anxiety, depression, other - Social History Smoking Status: Never smoker Smokeless Tobacco Status: No Alcohol use: occasionally Drug use: none Internal Medicine - H&P: Meds Lamotrigine [Lamictal] 100 mg PO DAILY 05/26/16 [History] Venlafaxine XR (24 HR) [Effexor XR] 75 mg PO DAILY 05/26/16 [History] Quetiapine Fumarate [Seroquel] 25 mg PO HS PRN #30 tablet 05/29/16 [Rx] Alprazolam [Xanax 0.5 MG Tablet] 0.5 mg PO TID PRN 06/03/16 [History] Allergies No Known Allergies Allergy (Verified 05/26/16 13:00) ROS unobtainable: due to mental status All Systems PM: A 10-system review of systems was performed and is negative for pertinent findings except as documented above in the HPI. - Constitutional Vitals: Temp Pulse Resp BP Pulse Ox 97.2 F L 100 14 108/76 100 06/03/16 20:13 06/03/16 20:13 06/03/16 20:13 06/03/16 20:13 06/03/16 20:13 Exam: Somnolent arouses to painful stimuli oriented to name - Head Head exam: Present: atraumatic, normocephalic - Eye Eye exam: Present: sclera anicteric Pupils: Present: mydriatic Additional comments: Sclera are red - Respiratory Respiratory exam: Present: CTAB. Absent: accessory muscle use, rales, rhonchi, wheezes - Cardiovascular Cardiovascular exam: Present: RRR, +S1, +S2. Absent: diastolic murmur, gallop, rubs, systolic murmur - GI/Abdominal GI/Abdominal exam: Present: normal bowel sounds, soft, no peritoneal signs. Absent: distended, tenderness - Extremities Exam Extremities exam: Present: warm, radial pulses palpable and symetrical. Absent : calf tenderness, cyanotic, pedal edema - Neurological Exam Neurological exam: Absent: pronater drift, facial droop, speech deficit Additional comments: Patient is somnolent and arouses to painful stimuli oriented to name - Skin Skin exam: Present: dry, intact Additional comments: Cheeks are flushed Internal Med - H&P Results - Labs CBC & Chem 7: 06/03/16 16:22 06/03/16 16:22 - EKG Data EKG shows normal: sinus rhythm Rate: tachycardia - EKG Data Prior EKG available for review: yes EKG comments: 06/03/16 20:49 QTC 498
[2016-06-03] MEDS: 0.9 % Sodium Chloride 1,000 ML IV SCH (23:12)
[2016-06-04 03:20] LABS: Basophils % 0.2 %; Eosinophils % 0.5 %; Hematocrit 37.6 % (35.3-44.9); Immature Granulocytes % 0.4 % (0-4); Immature Platelets 3.3 % (1.1-6.1); Lymphocytes # 1.5 K/mcL (0.6-4.6); Lymphocytes % 17.3 %; Mean Corpuscular HGB Conc 31.9 g/dL (31.6-35.5); Mean Corpuscular Hemoglobin 29.1 pg (28.0-33.3); Mean Platelet Volume 10.4 fL (9.4-12.4); Monocytes # 0.7 K/mcL (0.0-1.3); Monocytes % 8.6 %; Neutrophils # 6.2 K/mcL (1.6-8.9); Platelet Count 209 K/mcL (140-400); Red Blood Count 4.13 M/mcL (3.82-4.97); Red Cell Distribution Width 13.2 % (11.5-14.5)
[2016-06-04 03:33] LABS: BUN/Creatinine Ratio 7 (6-26); Blood Urea Nitrogen 7 mg/dL (7-20); Calcium 7.8 mg/dL (8.6-10.8); Carbon Dioxide 20 mEq/L (19-29); Chloride 117 mEq/L (98-109); Glucose 70 mg/dL (70-99); Magnesium 2.4 mg/dL (1.7-2.2); Osmolality,Calculated 292 (280-300); Potassium 4.7 mEq/L (3.5-4.5); Sodium 143 mEq/L (136-145); eGFR For African Americans > 60 (> 60); eGFR For Non-African Americans > 60 (> 60)
[2016-06-04] MEDS: 0.9 % Sodium Chloride 1,000 ML IV SCH ×2 (04:41→09:47)
[2016-06-04] MEDS ORDERED: *HR* Enoxaparin 40 MG/0.4 ML SYRINGE SQ SCH (06:00)
--- NOTE | 2016-06-04 15:10 | Event Note ---
Date of Encounter: 06/04/16 Time of Encounter: 15:07 Called by hospitalist to evaluate for medical clearance for transfer out of ICU. I reviewed the chart and evaluated the patient. She is hemodynamically stable and stable from a respiratory standpoint. No current critical care needs. OK to transfer out of the ICU. Psychiatry evaluation pending.
--- NOTE | 2016-06-04 15:51 | Event Note ---
Date of Encounter: 06/04/16 Time of Encounter: 15:49 Pt awake and alert. Tearful. No CP or dyspnea. No dysrhythmia on monitor. EKG with QTc of 380. Labs all corrected. Pt medically clear for discharge to inpatient psychiatric unit.
--- NOTE | 2016-06-04 16:16 | Discharge Summary ---
Date of Encounter: 06/04/16 Time of Encounter: 15:45 - Discharge Diagnosis (1) Drug overdose Priority: Primary Status: Acute Qualifiers: Encounter type: subsequent encounter Injury intent: intentional self-harm Qualified Code(s): T50.902D - Poisoning by unspecified drugs, medicaments and biological substances, intentional self-harm, subsequent encounter (2) Suicidal ideation Priority: Primary Status: Acute (3) Depression Priority: Secondary Status: Acute Qualifiers: Depression Type: other depression Qualified Code(s): F32.89 - Other specified depressive episodes (4) Metabolic acidosis due to ingestion of drugs or chemicals Priority: Secondary Status: Acute (5) LYNNE (acute kidney injury) Priority: Secondary Status: Resolved (6) Hypomagnesemia Priority: Secondary Status: Resolved - Discharge Medications Allergies/Adverse Reactions: Allergies No Known Allergies Allergy (Verified 05/26/16 13:00) Procedures/tests Complete & Pending: Procedures Performed prior 72 hours Category Date Time Status ECG 12 lead ECG [ECG] Routine Y 06/03/16 16:08 Completed ECG 12 lead ECG [ECG] Routine Y 06/03/16 20:48 Completed EKG [ECG 12 lead ECG] [ECG] AM 0600 Y 06/04/16 06:00 Ordered EKG [ECG 12 lead ECG] [ECG] Routine Y 06/04/16 00:01 Ordered - Notes to Outpatient Provider Needs follow up on UA/C&S. Date of admission: 06/03/16 18:18 Primary care physician: ROHITH NO Consults: 06/03/16 21:16 Consult to Psychiatry [CONS] Routine Consulting Provider: Psychiatry Concepcion Reason for Consult: Intentional overdose Time Notified: 21:17 Call Completed: No 06/04/16 14:36 Consult to Critical Care [CONS] Stat Consulting Provider: [facility] [place] Reason for Consult: Drug overdose Call Completed: No Discharging clinician: Yonis Damon Anticipated date of discharge: 06/04/16 - Patient Status Disposition: Transfer Psychiatric Hosp Condition: Fair Functional capacity at discharge: independent ambulation - Discharge Instructions Follow Up With: NO,PCP [Primary Care Provider] - - Diet and Activity Activity: resume usual activities as tolerated Diet: advance to your usual diet Hospital course: Ms. Coe is a 20 year old female with history of depression brought to ED due to attempted suicide. She was found after taking multiple medications at home in an attempt to kill herself. She was evaluated and admitted to the ICU. Ms. Coe was admitted to ICU. Her initial EKGs were negative for acute process and she was kept on tele monitor with sitter. Her magnesium was replaced. She was somnolent at first but gradually improved. On 06/04/16 she was alert and interactive. EKG had no QT prolongation. She was evaluated by psychiatry and felt appropriate for inpatient psychiatric admission. She did have WBC casts on UA so culture has been sent. - Time Spent with Patient Total time spent providing and/or coordinating discharge services: 39min - Constitutional Vitals: Temp Pulse Resp BP Pulse Ox 98.4 F 78 18 108/69 100 06/04/16 15:00 06/04/16 11:00 06/04/16 06:02 06/04/16 06:02 06/04/16 09:30 General appearance: Present: A&O X 3 Exam: Tearful. - Head Head exam: Present: normocephalic - Eye Eye exam: Present: conjuntiva pink - ENT ENT exam: Present: mucous membranes moist - Respiratory Respiratory exam: Present: CTAB. Absent: rales, wheezes - Cardiovascular Cardiovascular exam: Present: RRR. Absent: systolic murmur, tachycardia - GI/Abdominal GI/Abdominal exam: Present: soft. Absent: tenderness - Extremities Exam Extremities exam: Present: warm. Absent: pedal edema - Neurological Exam Neurological exam: Present: alert, oriented X3 - Psychiatric Psychiatric exam: Present: depressed
--- NOTE | 2016-06-04 17:16 | Consult Note ---
Date of Encounter: 06/04/16 Time of Encounter: 15:00 Assessment & Recommendation (1) Depression Status: Acute Qualifiers: Depression Type: major depressive disorder Major depression recurrence: recurrent Active/Remission status: currently active Major depression episode severity: severe Psychotic features: without psychotic features Qualified Code(s): F33.2 - Major depressive disorder, recurrent severe without psychotic features (2) Suicidal ideation Status: Acute History of Present Illness Patient: known to practice within the last 3 years Requesting Physician: Ruel Sosa MD Reason for consult: overdose on meds History of present illness: Ms. Del Castillo is a 20 year old female who was recently discharged home one day was diagnosis with depression and suicidal ideation, patient few days later overdosed on her medication including Effexor and Seroquel and Lamictal. Patient was admitted to the medical floor for evaluation and stabilization and I was consulted to evaluate its her at this time. New line patient is guarded Patient is guarded and denied any specific crisis or trigger that caused her overdose. Patient seemed to be impulsive and has not planned overdose. After reviewing patient's clinical status I recommended hospitalization at 1 A for stabilization, she was resistant to the decision but then was agreeable CC: Ruel Sosa MD Past Med Surg Social Fam HX - Past Medical History Medical history: other - Past Psychiatric History Psychiatric history: Reports: anxiety, depression, previous psychiatric hospitalization Family psychiatric history: Unknown Family History of Suicide: Unknown - Social History Smoking Status: Never smoker Smokeless Tobacco Status: No Alcohol use: occasionally Drug use: none Medications & Allergies Lamotrigine [Lamictal] 100 mg PO DAILY 06/04/16 [History] Quetiapine Fumarate [SEROquel] 25 mg PO HS PRN 06/04/16 [History] Venlafaxine XR (24 HR) [Effexor XR] 75 mg PO DAILY 06/04/16 [History] Allergies No Known Allergies Allergy (Verified 05/26/16 13:00) Review of Systems Psychiatric: Reports: depression, anxiety, suicidal ideation, anhedonia, hopelessness Mental Status Exam Patient orientation: Yes Person, Yes Time, Yes Place Level of alertness: Sedated Patient appearance: Appropriate, Well Groomed Behavior: calm, cooperative, guarded, withdrawn Psychomotor activity: Slowed Eye contact: Minimal Contact Mood description: Depressed, Anxious Affect description: incongruent with mood Speech pattern: Normal rate, Delayed, Inappropriate to situation Speech volume: Soft/Quiet Thought process: Circumstantial, Thought Blocking Thought content: Yes Suicidal ideation, Yes Preoccupation Perceptual disturbances: No Auditory hallucinations, No Visual hallucinations Attention span: Unable to Focus Memory description: Immediate Impaired Patient reliability: Questionable Historian Intelligence estimate: Average Judgment: Fair Insight: Partial Results - Vital Signs Vital signs: Temp Pulse Resp BP Pulse Ox 98.4 F 78 18 108/69 100 06/04/16 15:00 06/04/16 16:00 06/04/16 06:02 06/04/16 06:02 06/04/16 09:30 - Labs Labs: Laboratory Last Values WBC 8.5 K/mcL (4.3-11.1) 06/04/16 02:59 RBC 4.13 M/mcL (3.82-4.97) 06/04/16 02:59 Hgb 12.0 g/dL (11.5-15.4) D 06/04/16 02:59 Hct 37.6 % (35.3-44.9) 06/04/16 02:59 MCV 91.0 fL (83.0-100.0) 06/04/16 02:59 MCH 29.1 pg (28.0-33.3) 06/04/16 02:59 MCHC 31.9 g/dL (31.6-35.5) 06/04/16 02:59 RDW 13.2 % (11.5-14.5) 06/04/16 02:59 Plt Count 209 K/mcL (140-400) 06/04/16 02:59 MPV 10.4 fL (9.4-12.4) 06/04/16 02:59 Immature Gran % 0.4 % (0-4) 06/04/16 02:59 Seg Neutrophils % 73.0 % 06/04/16 02:59 Lymphocytes % 17.3 % 06/04/16 02:59 Monocytes % 8.6 % 06/04/16 02:59 Eosinophils % 0.5 % 06/04/16 02:59 Basophils % 0.2 % 06/04/16 02:59 Neutrophils # 6.2 K/mcL (1.6-8.9) 06/04/16 02:59 Lymphocytes # 1.5 K/mcL (0.6-4.6) 06/04/16 02:59 Monocytes # 0.7 K/mcL (0.0-1.3) 06/04/16 02:59 Eosinophils # 0.0 K/mcL (0.0-0.6) 06/04/16 02:59 Basophils # 0.0 K/mcL (0.0-0.2) 06/04/16 02:59 Immature Plt Fraction 3.3 % (1.1-6.1) 06/04/16 02:59 ABG pH 7.30 pH Units (7.32-7.45) L 06/03/16 19:45 ABG pCO2 45 mmHg (35-45) 06/03/16 19:45 ABG pO2 100 mmHg (85-104) 06/03/16 19:45 ABG HCO3 22.1 mEQ/L (21-27) 06/03/16 19:45 ABG Total CO2 23.5 mEq/L (20-26) 06/03/16 19:45 ABG O2 Saturation 97 % (95-98) 06/03/16 19:45 ABG Base Excess -4.3 mEq/L (-2.0 to 3.0) L 06/03/16 19:45 Liter Flow 2.0 L/MIN 06/03/16 19:45 Blood Gas Modality NC 06/03/16 19:45 Sodium 143 mEq/L (136-145) 06/04/16 02:59 Potassium 4.7 mEq/L (3.5-4.5) H 06/04/16 02:59 Chloride 117 mEq/L (98-109) H 06/04/16 02:59 Carbon Dioxide 20 mEq/L (19-29) 06/04/16 02:59 BUN 7 mg/dL (7-20) 06/04/16 02:59 Creatinine 0.98 mg/dL (0.57-1.11) 06/04/16 02:59 Est GFR ( Amer) > 60 (> 60) 06/04/16 02:59 Est GFR (Non-Af Amer) > 60 (> 60) 06/04/16 02:59 BUN/Creatinine Ratio 7 (6-26) 06/04/16 02:59 Glucose 70 mg/dL (70-99) 06/04/16 02:59 POC Glucose 67 (58-89) 06/03/16 19:45 Calculated Osmolality 292 (280-300) 06/04/16 02:59 Calcium 7.8 mg/dL (8.6-10.8) L 06/04/16 02:59 Phosphorus 2.7 mg/dL (2.3-4.7) 06/03/16 16:22 Magnesium 2.4 mg/dL (1.7-2.2) H 06/04/16 02:59 Urine Color Yellow (Yellow) 06/03/16 17:45 Urine Clarity Cloudy (Clear) A 06/03/16 17:45 Urine pH 5.5 pH Units (5.0-8.0) 06/03/16 17:45 Ur Specific [place] 1.008 (1.010-1.025) L 06/03/16 17:45 Urine Protein Trace mg/dL (Neg-Trace) 06/03/16 17:45 Urine Glucose (UA) Normal mg/dL (Normal) 06/03/16 17:45 Urine Ketones Negative mg/dL (Negative) 06/03/16 17:45 Urine Blood Small (Negative) H 06/03/16 17:45 Urine Nitrite Negative (Negative) 06/03/16 17:45 Urine Bilirubin Negative (Negative) 06/03/16 17:45 Urine Urobilinogen Normal mg/dL (Normal) 06/03/16 17:45 Ur Leukocyte Esterase Negative (Negative) 06/03/16 17:45 Urine Microscopic RBC 0-3 per hpf (0-3) 06/03/16 17:45 Urine Microscopic WBC 5-15 per hpf (0-3) H 06/03/16 17:45 Ur Squamous Epith Cells Many per lpf (None-Few) H 06/03/16 17:45 Amorphous Sediment Many (Few) H 06/03/16 17:45 Urine Bacteria Moderate per hpf (None-Few) H 06/03/16 17:45 Hyaline Casts Few per lpf (None-Few) 06/03/16 17:45 Granular Casts Moderate per lpf (None Seen) H 06/03/16 17:45 WBC Casts Many per lpf (None Seen) H 06/03/16 17:45 Urine Test Negative (Negative) 06/03/16 17:45 Salicylates < 5.0 mg/dL (15-30) L 06/03/16 16:22 Urine Opiates Screen Negative ng/mL (Sgdlql=488) 06/03/16 17:45 Acetaminophen < 1.0 mcg/mL (10-30) L 06/03/16 16:22 Ur Barbiturates Screen Negative ng/mL (Nboyed=432) 06/03/16 17:45 Ur Phencyclidine Scrn Negative ng/mL (Cutoff=25) 06/03/16 17:45 Ur Amphetamines Screen Negative ng/mL (Fonurz=5905) 06/03/16 17:45 U Benzodiazepines Scrn Positive ng/mL (Psomrb=352) H 06/03/16 17:45 Urine Cocaine Screen Negative ng/mL (Cutoff= 300) 06/03/16 17:45 U Marijuana (THC) Screen Negative ng/mL (Cutoff = 50) 06/03/16 17:45 Ethyl Alcohol < 10 mg/dL (0-10) 06/03/16 16:22 Consult Discharge Plan - Plan Instructions: Depression (DC) Additional Instructions: Admit patient to 1 a after medical stabilization. Referrals: NO,PCP [Primary Care Provider] -
--- NOTE | 2016-06-04 18:13 | Electrocardiograph Report ---
[facility] Test Date: 2016-06-03 Pat Name: ASTRID YUAN Department: 109 Room: [facility] Gender: F Telesales Supervisor: FARRAH : 1995 Requested By: Ruel Sosa Order Number: [id number] [place] MD: Grace Beavers Measurements Intervals [place] Rate: 89 P: 28 [place]: 210 QRS: 5 QRSD: 98 T: 7 QT: 360 QTc: 407 Interpretive Statements SINUS RHYTHM WITH FIRST DEGREE AV BLOCK Electronically Signed On 06-04-16 18:11:34 EST by Grace Beavers
--- NOTE | 2016-06-04 18:28 | Electrocardiograph Report ---
[facility] Test Date: 2016-06-03 Pat Name: ASTRID YUAN Department: 103 Room: [facility] Gender: F Chauffeur: LAUREN : 1995 Requested By: Ruel Sosa Order Number: [id number] [place] MD: Grace Beavers Measurements Intervals [place] Rate: 120 P: 50 [place]: 182 QRS: 71 QRSD: 97 T: 31 QT: 427 QTc: 498 Interpretive Statements SINUS TACHYCARDIA Electronically Signed On 06-04-16 18:27:35 EST by Grace Beavers
[2016-06-04 19:34] VITALS: BP 124/85
[2016-06-04] MEDS ORDERED: *HR* LORazepam 2 MG/ML VIAL IVP PRN (19:39)
[2016-06-04] MEDS ORDERED: Naloxone 0.4 MG/ML INJ IVP PRN (19:39)
[2016-06-05] MEDS ORDERED: *HR* Enoxaparin 40 MG/0.4 ML SYRINGE SQ SCH (06:00)
--- NOTE | 2016-06-05 11:10 | Electrocardiograph Report ---
[facility] Test Date: 2016-06-04 Pat Name: ASTRID YUAN Department: 109 Room: [facility] Gender: F Financial Recruiter: : 1995 Requested By: Ruel Sosa Order Number: [id number] [place] MD: Joe Whyte MD Measurements Intervals [place] Rate: 71 P: 49 PA: 202 QRS: 42 QRSD: 86 T: 83 QT: 371 QTc: 394 Interpretive Statements SINUS RHYTHM POOR R WAVE PROGRESSION Electronically Signed On 06-05-16 11:09:25 EST by Joe Whyte MD
== END 2016-06-04 22:11 | DRG 918 ==
LOC: EMEROO 16:03 → ICNU 18:18
PROVIDERS: ADMIT Nurse Practitioner Acute Care; ATTEND Family Medicine

== ENCOUNTER 2016-06-04 22:17 | Inpatient (IN) ==
[2016-06-04] MEDS ORDERED: *HR* LORazepam 2 MG/ML VIAL IM PRN (22:49)
[2016-06-04] MEDS ORDERED: Haloperidol Lactate 5 MG/ML VIAL IM PRN (22:49)
[2016-06-04] MEDS ORDERED: Mag Hydrox/Al Hydrox/Simeth 30 ML UDC PO PRN (22:49)
[2016-06-04] MEDS ORDERED: *HR* LORazepam 1 MG TABLET PO PRN (22:49)
[2016-06-04] MEDS ORDERED: MOM Conc 10 ML UD.LIQ PO PRN (22:49)
[2016-06-05] MEDS: hydrOXYzine pamoate 25 MG CAPSULE PO PRN ×2 (00:47→21:40)
[2016-06-05] MEDS: traZODone 50 MG TABLET PO PRN ×2 (00:47→21:40)
--- NOTE | 2016-06-05 11:04 | Psychiatry History & Physical ---
Date of Encounter: 06/05/16 Time of Encounter: 10:58 History of Present Illness Patient Stated Chief Complaint: suicidal,overdose Medicare Admission Attestation: For traditional Medicare patients the provided hospital inpatient services are reasonable and necessary and in the case of services not specified as inpatient -only under 42 CFR 419.22 (n), that they are appropriately provided as inpatient services in accordance 42 CFR 412.3. For Critical Access Hospital the patient may reasonably be expected to be discharged or transferred to a hospital within 96 hours after admission to the Critical Access Hospital. Admitted From: Intrahospital Transfer History of Present Illness: Ms. Del Castillo is a 20 year old female admitted as a unit from ICU where she was evaluated and stabilized from an overdose on her medication patient was recently hospitalized on the unit and discharged on medication including Effexor and Celexa and Seroquel patient was depressed and overdosed on her medication was evaluated and medically stabilized in ICU and then I was consulted to see her in the ICU and then she was admitted to our unit. Patient could not present a specific for suicide attempt but she reports that she feels lonely and "not call any friends and as a result that she overdosed. Please review previous admission for history including social history and family history and past psychiatric history. Past Med Surg Social Fam HX - Past Medical History Medical history: other - Past Psychiatric History Psychiatric history: Reports: anxiety, depression, prior suicide attempt, previous psychiatric hospitalization Family psychiatric history: Unknown Family History of Suicide: Unknown - Social History Smoking Status: Never smoker Smokeless Tobacco Status: No Alcohol use: occasionally Drug use: none Medications & Allergies Lamotrigine [Lamictal] 100 mg PO DAILY 06/04/16 [History] Quetiapine Fumarate [SEROquel] 25 mg PO HS PRN 06/04/16 [History] Venlafaxine XR (24 HR) [Effexor XR] 75 mg PO DAILY 06/04/16 [History] Allergies No Known Allergies Allergy (Verified 05/26/16 13:00) Review of Systems Psychiatric: Reports: depression, anxiety, suicidal ideation, difficulty concentrating Mental Status Exam Patient orientation: Yes Person, Yes Time, Yes Place Level of alertness: Alert, Sedated Patient appearance: Appropriate, Well Groomed Behavior: calm, cooperative, withdrawn Psychomotor activity: Slowed Eye contact: Maintains Eye Contact Mood description: Depressed, Anxious Affect description: constricted, dysphoric, anxious Speech pattern: Normal rate, Normal rhythm, Normal tone Speech volume: Normal Thought process: Linear, Goal Oriented Thought content: No Suicidal ideation, No Homicidal ideation, No Overt delusions Perceptual disturbances: No Auditory hallucinations, No Visual hallucinations Attention span: Capable of Focused Attention Memory description: Grossly Intact Patient reliability: Reliable Historian Intelligence estimate: Average Judgment: Fair Insight: Partial Results - Vital Signs Vital signs: Temp Pulse Resp BP 98.7 F 96 16 119/81 06/05/16 08:47 06/05/16 08:47 06/05/16 08:47 06/05/16 08:47 Assessment and Plan (1) Depression Current visit: Yes Status: Acute Plan: Admit inpatient for safety and stabilization, Close observation, Suicide Precautions per unit protocol, Encourage participation in unit milieu, Group Therapy, Monitor sleep, Monitor appetite Additional Plan: Discussed treatment plan was patient and explained that she can go back on medication that she overdosed on. She was interested in starting on new medication. I discussed with her benefits and side effects of Cymbalta and she was agreeable to start taking it she would be started on Cymbalta 30 mg daily and her response will be monitored daily. Patient also was encouraged to participate in unit activities and groups. Risks, benefits, side effects, alternatives discussed w/pt: Yes Patient agreeable to treatment: Yes Estimated Length of Stay (Days): 5 Qualifiers: Depression Type: major depressive disorder Major depression recurrence: recurrent Active/Remission status: currently active Major depression episode severity: severe Psychotic features: without psychotic features Qualified Code(s): F33.2 - Major depressive disorder, recurrent severe without psychotic features (2) Suicidal ideation Current visit: Yes Status: Acute Plan: Admit inpatient for safety and stabilization, Close observation, Suicide Precautions per unit protocol, Encourage participation in unit milieu, Group Therapy, Monitor sleep, Monitor appetite Risks, benefits, side effects, alternatives discussed w/pt: Yes Patient agreeable to treatment: Yes Estimated Length of Stay (Days): 5
[2016-06-06] MEDS: Ibuprofen 400 MG TABLET PO PRN (09:49)
--- NOTE | 2016-06-06 14:03 | Psychiatry Progress Note ---
Date of Encounter: 06/06/16 Time of Encounter: 14:00 Subjective Interval history: Patient seen for follow-up. Nursing staff reports she is participating in activities socializing. She is tolerating the new medication and denies any side effects and denying any suicidal ideation. She told me that in the past she was treated with Accutane for acne and depression can be a side effect of the medication. She did not discuss this with her batch mixer at that time. Continue to be superficial and guarded but denied hopelessness. Review of Systems Psychiatric: Reports: depression, anxiety, difficulty concentrating. Denies: suicidal ideation Objective: Exam Patient orientation: Yes Person, Yes Time, Yes Place Level of alertness: Alert Patient appearance: Appropriate, Well Groomed Behavior: calm, cooperative, withdrawn Psychomotor activity: Slowed Eye contact: Maintains Eye Contact Mood description: Depressed, Anxious Affect description: constricted, anxious Speech pattern: Normal rate, Normal rhythm, Normal tone Speech volume: Normal Thought process: Linear, Goal Oriented Thought content: No Suicidal ideation, No Homicidal ideation, No Overt delusions Perceptual disturbances: No Auditory hallucinations, No Visual hallucinations Judgment: Fair Insight: Partial Results - Vital Signs Vital Signs: Temp Pulse Resp BP 98.6 F 72 18 119/83 06/06/16 08:26 06/06/16 08:26 06/06/16 08:26 06/06/16 08:26 Assessment and Plan (1) Depression Current visit: Yes Status: Acute Plan: Continue hospitalization, Close observation, Suicide Precautions per unit protocol, Encourage participation in unit milieu, Group Therapy, Monitor sleep, Monitor appetite Risks, benefits, side effects, alternatives discussed w/pt: Yes Patient agreeable to treatment: Yes Qualifiers: Depression Type: major depressive disorder Major depression recurrence: recurrent Active/Remission status: currently active Major depression episode severity: severe Psychotic features: without psychotic features Qualified Code(s): F33.2 - Major depressive disorder, recurrent severe without psychotic features (2) Suicidal ideation Current visit: Yes Status: Acute Plan: Continue hospitalization, Close observation, Suicide Precautions per unit protocol, Encourage participation in unit milieu, Group Therapy, Monitor sleep, Monitor appetite Risks, benefits, side effects, alternatives discussed w/pt: Yes Patient agreeable to treatment: Yes Consult Discharge Plan - Plan Referrals: [facility] [Outside] - 06/17/16 10:00 am (The above appointment is with Erika Cruz. Please arrive 10 minutes early for all appointments to complete the check-in process. Please bring your insurance card or HCAP award letter, and photo ID to this appointment. If you are unable to keep this appointment, 24 hour business notice of cancellation is expected. If you miss your new patient appointment, you cannot be re-scheduled in this practice. The [facility] is the [facility]st [facility] in [place], [place]. ) [facility] [employer] [facility] [Outside] - 07/29/16 8:45 am (The above appointment is with Nichole Hankins. Please arrive 15 minutes early to complete paperwork. Please bring your insurance card, photo ID and medications in their original bottles. If you do not have insurance, bring proof of income to apply for the sliding fee scale. If you are unable to keep this appointment , 24 hour business notice of cancellation is expected. )
[2016-06-06] MEDS: traZODone 50 MG TABLET PO PRN (21:53)
--- NOTE | 2016-06-07 13:54 | Psychiatry Progress Note ---
Date of Encounter: 06/07/16 Time of Encounter: 13:52 Subjective Interval history: Patient seen for follow-up. Nursing staff reports she is denying suicidal ideation participating in activities and socialization and continued to be superficial and guarded. She is tolerating medication without any complaints her sleep has been stable for discharge plans are ongoing. Review of Systems Psychiatric: Reports: depression, anxiety, difficulty concentrating. Denies: suicidal ideation Objective: Exam Patient orientation: Yes Person, Yes Time, Yes Place Level of alertness: Alert Patient appearance: Appropriate, Well Groomed Behavior: calm, cooperative, withdrawn Psychomotor activity: Slowed Eye contact: Maintains Eye Contact Mood description: Depressed, Anxious Affect description: constricted, anxious Speech pattern: Normal rate, Normal rhythm, Normal tone Speech volume: Normal Thought process: Linear, Goal Oriented Thought content: No Suicidal ideation, No Homicidal ideation, No Overt delusions Perceptual disturbances: No Auditory hallucinations, No Visual hallucinations Judgment: Fair Insight: Partial Results - Vital Signs Vital Signs: Temp Pulse Resp BP 98.5 F 90 16 118/79 06/07/16 09:00 06/07/16 09:00 06/07/16 09:00 06/07/16 09:00 Assessment and Plan (1) Depression Current visit: Yes Status: Acute Plan: Continue hospitalization, Close observation, Suicide Precautions per unit protocol, Encourage participation in unit milieu, Group Therapy, Monitor sleep, Monitor appetite Risks, benefits, side effects, alternatives discussed w/pt: Yes Patient agreeable to treatment: Yes Qualifiers: Depression Type: major depressive disorder Major depression recurrence: recurrent Active/Remission status: currently active Major depression episode severity: severe Psychotic features: without psychotic features Qualified Code(s): F33.2 - Major depressive disorder, recurrent severe without psychotic features (2) Suicidal ideation Current visit: Yes Status: Acute Plan: Continue hospitalization, Close observation, Suicide Precautions per unit protocol, Encourage participation in unit milieu, Group Therapy, Monitor sleep, Monitor appetite Risks, benefits, side effects, alternatives discussed w/pt: Yes Patient agreeable to treatment: Yes Consult Discharge Plan - Plan Referrals: [facility] [Outside] - 06/17/16 10:00 am (The above appointment is with Erika Cruz. Please arrive 10 minutes early for all appointments to complete the check-in process. Please bring your insurance card or HCAP award letter, and photo ID to this appointment. If you are unable to keep this appointment, 24 hour business notice of cancellation is expected. If you miss your new patient appointment, you cannot be re-scheduled in this practice. The [facility] is the [facility]st [facility] in [place], [place]. ) [facility] [employer] [facility] [Outside] - 07/29/16 8:45 am (The above appointment is with Nichole Hankins. Please arrive 15 minutes early to complete paperwork. Please bring your insurance card, photo ID and medications in their original bottles. If you do not have insurance, bring proof of income to apply for the sliding fee scale. If you are unable to keep this appointment , 24 hour business notice of cancellation is expected. )
[2016-06-07] MEDS: Ibuprofen 400 MG TABLET PO PRN (18:42)
[2016-06-07] MEDS ORDERED: traZODone 50 MG TABLET PO SCH (21:00)
--- NOTE | 2016-06-08 14:37 | Psychiatry Progress Note ---
Date of Encounter: 06/08/16 Time of Encounter: 15:14 Subjective Interval history: Patient is seen for follow-up. Nursing staff reports she is denying suicidal ideation participating in group activities and socializing was the patient's denies any problems or appetite. Compliant with medication and denied any side effects. residential support worker is discussing her discharge plan was for mother to make sure that safety of medication and her access to medication is controlled to prevent overdose attempts in addition to increasing her activities and going back to work. Review of Systems Psychiatric: Reports: depression, anxiety. Denies: suicidal ideation Objective: Exam Patient orientation: Yes Person, Yes Time, Yes Place Level of alertness: Alert Patient appearance: Appropriate, Well Groomed Behavior: calm, cooperative, withdrawn Psychomotor activity: Normal Eye contact: Maintains Eye Contact Mood description: Depressed, Anxious Affect description: constricted, anxious Speech pattern: Normal rate, Normal rhythm, Normal tone Speech volume: Normal Thought process: Linear, Goal Oriented Thought content: No Suicidal ideation, No Homicidal ideation, No Overt delusions Perceptual disturbances: No Auditory hallucinations, No Visual hallucinations Judgment: Fair Insight: Partial Results - Vital Signs Vital Signs: Temp Pulse Resp BP 97.6 F 81 16 110/80 06/08/16 09:00 06/08/16 09:00 06/08/16 09:00 06/08/16 09:00 Assessment and Plan (1) Depression Current visit: Yes Status: Acute Plan: Continue hospitalization, Close observation, Suicide Precautions per unit protocol, Encourage participation in unit milieu, Group Therapy, Monitor sleep, Monitor appetite Risks, benefits, side effects, alternatives discussed w/pt: Yes Patient agreeable to treatment: Yes Qualifiers: Depression Type: major depressive disorder Major depression recurrence: recurrent Active/Remission status: currently active Major depression episode severity: severe Psychotic features: without psychotic features Qualified Code(s): F33.2 - Major depressive disorder, recurrent severe without psychotic features (2) Suicidal ideation Current visit: Yes Status: Acute Plan: Continue hospitalization, Close observation, Suicide Precautions per unit protocol, Encourage participation in unit milieu, Group Therapy, Monitor sleep, Monitor appetite Risks, benefits, side effects, alternatives discussed w/pt: Yes Patient agreeable to treatment: Yes Consult Discharge Plan - Plan Referrals: [facility] [Outside] - 06/17/16 10:00 am (The above appointment is with Erika Cruz. Please arrive 10 minutes early for all appointments to complete the check-in process. Please bring your insurance card or HCAP award letter, and photo ID to this appointment. If you are unable to keep this appointment, 24 hour business notice of cancellation is expected. If you miss your new patient appointment, you cannot be re-scheduled in this practice. The [facility] is the [facility]st [facility] in [place], [place]. ) [facility] [Outside] - 07/29/16 8:45 am (The above appointment is with Nichole Hankins. Please arrive 15 minutes early to complete paperwork. Please bring your insurance card, photo ID and medications in their original bottles. If you do not have insurance, bring proof of income to apply for the sliding fee scale. If you are unable to keep this appointment , 24 hour business notice of cancellation is expected. )
[2016-06-09 09:47] VITALS: BP 109/73
--- NOTE | 2016-06-09 12:05 | Discharge Summary ---
Date of Encounter: 06/09/16 Time of Encounter: 12:00 Diagnosis - Discharge Diagnosis (1) Depression Priority: Primary Status: Acute Qualifiers: Depression Type: major depressive disorder Major depression recurrence: recurrent Active/Remission status: currently active Major depression episode severity: severe Psychotic features: without psychotic features Qualified Code(s): F33.2 - Major depressive disorder, recurrent severe without psychotic features (2) Suicidal ideation Priority: Secondary Status: Acute Medications - Discharge Medications Prescriptions: Duloxetine [Cymbalta] 30 mg PO DAILY #30 capsule. Zolpidem [Ambien] 10 mg PO HS PRN #30 tablet PRN Reason: Insomnia Duloxetine [Cymbalta] 30 mg PO DAILY #30 capsule. 06/09/16 [Rx] Zolpidem [Ambien] 10 mg PO HS PRN #30 tablet 06/09/16 [Rx] Allergies No Known Allergies Allergy (Verified 05/26/16 13:00) Provider Date of admission: 06/04/16 22:17 Primary care physician: PCP NO Discharging clinician: Guero Rhoades Assessment and Plan - Patient/Caregiver Discharge Instructions Activity: resume usual activities as tolerated Diet: regular diet - Follow up Plan Follow up with: [facility] [Outside] - 06/17/16 10:00 am (The above appointment is with Erika Cruz. Please arrive 10 minutes early for all appointments to complete the check-in process. Please bring your insurance card or HCAP award letter, and photo ID to this appointment. If you are unable to keep this appointment, 24 hour business notice of cancellation is expected. If you miss your new patient appointment, you cannot be re-scheduled in this practice. The [facility] in [place], [place]. ) [facility] [Outside] - 07/29/16 8:45 am (The above appointment is with Nichole Hankins. Please arrive 15 minutes early to complete paperwork. Please bring your insurance card, photo ID and medications in their original bottles. If you do not have insurance, bring proof of income to apply for the sliding fee scale. If you are unable to keep this appointment , 24 hour business notice of cancellation is expected. ) Disposition: Home, Self-Care Hospital Course Hospital course: Ms. Del Castillo is a 20 year old female who was admitted to psychiatric units on ICU after overdosing on her medication in a suicide attempt. This was a second admission in less than 10 days with the same presentation. For details of the admission please see H&P in the system. On admission patient was evaluated medication were reviewed, we discontinued the Effexor and Seroquel and Lamictal, these were the medications she overdosed on. She was started on duloxetine 30 mg daily and trazodone for sleep. She tolerated the duloxetine and felt better, however she did not tolerate trazodone and experienced bad dreams and nightmares and sedation. I discontinued trazodone and order zolpidem 10 mg, she slept well on zolpidem. Patient participated in activities and groups was compliant with his medication and denied suicidal ideation and she was future oriented and anxious to go back to work. Social work contacted her mother and discussed discharge plans and safety plans. Prior to discharge patient was medically stable and nonsuicidal optimistic looking forward to discharge and follow-up as an outpatient. - Time Spent with Patient Total time spent providing and/or coordinating discharge services: Less than 30 minutes Quality - Multiple Antipsychotics Patient discharged on 2 or more antipsychotic medications: No Procedures - Procedures Procedures: Medication Management, Crisis Stabilization, Supportive Therapy, Group Therapy, Psychoeducational Therapy Mental Status Exam - Mental Status Exam Patient orientation: Yes Person, Yes Time, Yes Place Level of alertness: Alert Patient appearance: Appropriate, Well Groomed Behavior: calm, cooperative, withdrawn Psychomotor activity: Normal Eye contact: Maintains Eye Contact Mood description: Euthymic/stable, Anxious Affect description: congruent with mood, constricted, anxious Speech pattern: Normal rate, Normal rhythm, Normal tone Speech Volume: Normal Thought process: Logical, Linear, Goal Oriented Thought Content: No Suicidal ideation, No Homicidal ideation, No Overt delusions Perceptual Disturbances: No Auditory hallucinations, No Visual hallucinations Judgment: Good Insight: Full
== END 2016-06-09 13:36 | disposition home or self-care (01) | DRG 918 ==
LOC: 1ANU 22:17
PROVIDERS: ADMIT Psychiatry & Neurology Psychiatry; ATTEND Psychiatry & Neurology Psychiatry

== ENCOUNTER 2016-06-19 14:37 | Inpatient (IN) ==
[2016-06-19] MEDS ORDERED: cephALEXin 250 MG CAPSULE PO ONE (15:36)
[2016-06-19 15:41] LABS: Bilirubin,Urine Negative (Negative); Blood,Urine Negative (Negative); Clarity,Urine Clear (Clear); Color,Urine Yellow (Yellow); Glucose,Urine (UA) Normal (Normal); Ketones,Urine 15 mg/dL (Negative); Leukocyte Esterase,Urine Negative (Negative); Nitrite,Urine Negative (Negative); PH,Urine 5.5 pH Units (5.0-8.0); Protein,Urine 30 mg/dL (Neg-Trace); Specific Gravity,Urine > 1.030 (1.010-1.025); Urobilinogen,Urine Normal (Normal)
[2016-06-19 15:44] LABS: Hyaline Casts,Urine Few per lpf (None-Few); Squamous Epithelial Cell,Urine Many per lpf (None-Few); WBC,Urine 0-3 per hpf (0-3)
[2016-06-19 15:47] LABS: Amphetamine Screen,Urine Negative ng/mL (Cutoff=1000); Barbiturate Screen,Urine Negative ng/mL (Cutoff=200); Benzodiazepines Screen,Urine Negative ng/mL (Cutoff=200); Cannabinoid Screen,Urine Negative ng/mL (Cutoff = 50); Cocaine Screen,Urine Negative ng/mL (Cutoff= 300); Opiate Screen,Urine Negative ng/mL (Cutoff=300); Phencyclidine Screen,Urine Negative ng/mL (Cutoff=25)
[2016-06-19 15:52] LABS: Bacteria,Urine Few per hpf (None-Few); Calcium Oxalate Crystals,Urine Present
[2016-06-19] MEDS ORDERED: Lidocaine/EPI 1:100k 1% 20 ML VIAL INFILT ONE (15:52)
[2016-06-19 16:44] LABS: Basophils % 0.2 %; Eosinophils % 0.2 %; Hematocrit 39.9 % (35.3-44.9); Hemoglobin 13.2 g/dL (11.5-15.4); Immature Granulocytes % 0.3 % (0-4); Lymphocytes # 1.6 K/mcL (0.6-4.6); Mean Corpuscular HGB Conc 33.1 g/dL (31.6-35.5); Mean Corpuscular Hemoglobin 29.3 pg (28.0-33.3); Mean Corpuscular Volume 88.5 fL (83.0-100.0); Mean Platelet Volume 10.8 fL (9.4-12.4); Monocytes # 0.8 K/mcL (0.0-1.3); Monocytes % 7.3 %; Neutrophils # 7.8 K/mcL (1.6-8.9); Platelet Count 212 K/mcL (140-400); Red Blood Count 4.51 M/mcL (3.82-4.97)
[2016-06-19 16:59] LABS: BUN/Creatinine Ratio 20 (6-26); Blood Urea Nitrogen 16 mg/dL (7-20); Calcium 9.5 mg/dL (8.6-10.8); Carbon Dioxide 19 mEq/L (19-29); Chloride 109 mEq/L (98-109); Ethanol < 10 mg/dL (0-10); Glucose 83 mg/dL (70-99); Osmolality,Calculated 288 (280-300); Salicylate < 5.0 mg/dL (15-30); Sodium 139 mEq/L (136-145); eGFR For African Americans > 60 (> 60); eGFR For Non-African Americans > 60 (> 60)
--- NOTE | 2016-06-19 19:27 | Emergency Department Note ---
Disposition Clinical Impression: Suicidal ideations, Laceration Disposition: Admitted As Inpatient Condition: Fair General Adult HPI - General Chief complaint: ED Psychiatric Symptoms Stated complaint: SI - slit wrist & forearm Source: patient Limitations: no limitations Nursing Notes Reviewed: Yes Vital Signs Reviewed: Yes - History of Present Illness HPI Narrative: Female patient with history of suicidal ideations, previous suicidal attempts., Borderline personality disorder. Presents today with concern for self- inflicted cutting wounds to left forearm. She has 2 wounds to left forearm which are approximately 3 cm each and open. She had a previous laceration repair to her left wrist which is just healed. She has reopened this laceration. She does not recall her last tetanus shot. She is feeling suicidal. Pain Scale: 0 - Related Data Home Medications Medication Instructions Recorded Confirmed CloNIDine HCl 0.1 mg PO HS 06/19/16 06/19/16 Lamotrigine [Lamictal] 50 mg PO DAILY 06/19/16 06/19/16 Venlafaxine XR (24 HR) [Effexor XR] 150 mg PO DAILY 06/19/16 06/19/16 Allergies Allergy/AdvReac Type Severity Reaction Status Date / Time No Known Allergies Allergy Verified 05/26/16 13:00 All systems ED: reviewed and negative except as stated. Past Medical History - Past Medical History Medical history: Reports: no medical history Psychiatric history: Reports: anxiety, depression, prior suicide attempt, previous psychiatric hospitalization - Social History Smoking Status: Never smoker Smokeless Tobacco Status: No Alcohol use: Reports: occasionally Drug use: Reports: none Physical Exam Alert and oriented [place] warm and dry TMs clear bilaterally mucous members moist Cardiovascular exam shows a regular rate and rhythm no murmur rub or gallop Pulmonary exam shows lungs clear and equal bilaterally without rales, rhonchi, wheezing Abdomen is soft and nontender without focal areas of peritonitis Extremities are well-perfused there is evidence of 2 lacerations of the left posterior forearm both approximately 3 cm no evidence of neurovascular compromise. Neurologic exam is without neurological deficit - General Limitations: no limitations General appearance: alert, in no apparent distress Course Vital Signs Temperature 98.8 F 06/19/16 14:43 Pulse Rate 95 06/19/16 14:43 Respiratory Rate 16 06/19/16 14:43 Blood Pressure 116/76 06/19/16 14:43 O2 Sat by Pulse Oximetry 97 06/19/16 14:43 Temperature 97.3 F L 02/01/17 21:00 Pulse Rate 96 06/19/16 21:00 Respiratory Rate 16 06/19/16 21:00 Blood Pressure 122/78 06/19/16 21:00 O2 Sat by Pulse Oximetry 99 06/19/16 16:08 Oxygen Delivery Oxygen Delivery Room Air Procedures - Laceration Laceration 1 Side (If applicable): left Size: 4-0 Technique: simple, interrupted (15 sutures were placed after copius irrigation with normal saline in two seperate forearm lacerations which were explored to the base without neurovascular compromise. 90 mg lidocaine was used for local anesthesia) Medical Decision Making - MDM Narrative Medical decision making narrative: 2 laceration repair is completed please see procedure note. Ongoing suicidal ideations with previous attempts with electrocution in a bathtub. We will admit to the psychiatric floor. Would continue Keflex at this time. Apply Bactroban to the wound. Admitted in stable condition. - Medical Records Medical records reviewed: Yes I reviewed the patient's medical records. - Lab Data Lab results reviewed: Yes I reviewed the patient's lab results. Result diagrams: 06/19/16 16:12 06/19/16 16:12 Lab Results 06/19/16 06/19/16 06/19/16 Range/Units 15:25 15:25 16:12 WBC 10.2 (4.3-11.1) K/mcL RBC 4.51 (3.82-4.97) M/mcL Hgb 13.2 (11.5-15.4) g/dL Hct 39.9 (35.3-44.9) % MCV 88.5 (83.0-100.0) fL MCH 29.3 (28.0-33.3) pg MCHC 33.1 (31.6-35.5) g/dL RDW 13.0 (11.5-14.5) % Plt Count 212 (140-400) K/mcL MPV 10.8 (9.4-12.4) fL Immature Gran % 0.3 (0-4) % Seg Neutrophils % 76.0 % Lymphocytes % 16.0 % Monocytes % 7.3 % Eosinophils % 0.2 % Basophils % 0.2 % Neutrophils # 7.8 (1.6-8.9) K/mcL Lymphocytes # 1.6 (0.6-4.6) K/mcL Monocytes # 0.8 (0.0-1.3) K/mcL Eosinophils # 0.0 (0.0-0.6) K/mcL Basophils # 0.0 (0.0-0.2) K/mcL Sodium (136-145) mEq/L Potassium (3.5-4.5) mEq/L Chloride (98-109) mEq/L Carbon Dioxide (19-29) mEq/L BUN (7-20) mg/dL Creatinine (0.57-1.11) mg/dL Est GFR ( Amer) (> 60) Est GFR (Non-Af Amer) (> 60) BUN/Creatinine Ratio (6-26) Glucose (70-99) mg/dL Calculated Osmolality (280-300) Calcium (8.6-10.8) mg/dL Urine Color Yellow (Yellow) Urine Clarity Clear (Clear) Urine pH 5.5 (5.0-8.0) pH Units Ur Specific [place] > 1.030 H (1.010-1.025) Urine Protein 30 H (Neg-Trace) mg/dL Urine Glucose (UA) Normal (Normal) mg/dL Urine Ketones 15 H (Negative) mg/dL Urine Blood Negative (Negative) Urine Nitrite Negative (Negative) Urine Bilirubin Negative (Negative) Urine Urobilinogen Normal (Normal) mg/dL Ur Leukocyte Esterase Negative (Negative) Urine Microscopic RBC 3-5 H (0-3) per hpf Urine Microscopic WBC 0-3 (0-3) per hpf Ur Squamous Epith Cells Many H (None-Few) per lpf Calcium Oxalate Crystal Present Urine Bacteria Few (None-Few) per hpf Hyaline Casts Few (None-Few) per lpf Salicylates (15-30) mg/dL Urine Opiates Screen Negative (Wizmtz=417) ng/mL Acetaminophen (10-30) mcg/mL Ur Barbiturates Screen Negative (Uodkoq=747) ng/mL Ur Phencyclidine Scrn Negative (Cutoff=25) ng/mL Ur Amphetamines Screen Negative (Fqqhcd=6048) ng/mL U Benzodiazepines Scrn Negative (Czgltc=083) ng/mL Urine Cocaine Screen Negative (Cutoff= 300) ng/mL U Marijuana (THC) Screen Negative (Cutoff = 50) ng/mL Ethyl Alcohol (0-10) mg/dL 06/19/16 Range/Units 16:12 WBC (4.3-11.1) K/mcL RBC (3.82-4.97) M/mcL Hgb (11.5-15.4) g/dL Hct (35.3-44.9) % MCV (83.0-100.0) fL MCH (28.0-33.3) pg MCHC (31.6-35.5) g/dL RDW (11.5-14.5) % Plt Count (140-400) K/mcL MPV (9.4-12.4) fL Immature Gran % (0-4) % Seg Neutrophils % % Lymphocytes % % Monocytes % % Eosinophils % % Basophils % % Neutrophils # (1.6-8.9) K/mcL Lymphocytes # (0.6-4.6) K/mcL Monocytes # (0.0-1.3) K/mcL Eosinophils # (0.0-0.6) K/mcL Basophils # (0.0-0.2) K/mcL Sodium 139 (136-145) mEq/L Potassium 4.0 (3.5-4.5) mEq/L Chloride 109 (98-109) mEq/L Carbon Dioxide 19 (19-29) mEq/L BUN 16 (7-20) mg/dL Creatinine 0.81 (0.57-1.11) mg/dL Est GFR ( Amer) > 60 (> 60) Est GFR (Non-Af Amer) > 60 (> 60) BUN/Creatinine Ratio 20 (6-26) Glucose 83 (70-99) mg/dL Calculated Osmolality 288 (280-300) Calcium 9.5 (8.6-10.8) mg/dL Urine Color (Yellow) Urine Clarity (Clear) Urine pH (5.0-8.0) pH Units Ur Specific [place] (1.010-1.025) Urine Protein (Neg-Trace) mg/dL Urine Glucose (UA) (Normal) mg/dL Urine Ketones (Negative) mg/dL Urine Blood (Negative) Urine Nitrite (Negative) Urine Bilirubin (Negative) Urine Urobilinogen (Normal) mg/dL Ur Leukocyte Esterase (Negative) Urine Microscopic RBC (0-3) per hpf Urine Microscopic WBC (0-3) per hpf Ur Squamous Epith Cells (None-Few) per lpf Calcium Oxalate Crystal Urine Bacteria (None-Few) per hpf Hyaline Casts (None-Few) per lpf Salicylates < 5.0 L (15-30) mg/dL Urine Opiates Screen (Gkwldx=901) ng/mL Acetaminophen 7.0 L (10-30) mcg/mL Ur Barbiturates Screen (Ynsltk=181) ng/mL Ur Phencyclidine Scrn (Cutoff=25) ng/mL Ur Amphetamines Screen (Kjmety=7166) ng/mL U Benzodiazepines Scrn (Pohglm=944) ng/mL Urine Cocaine Screen (Cutoff= 300) ng/mL U Marijuana (THC) Screen (Cutoff = 50) ng/mL Ethyl Alcohol < 10 (0-10) mg/dL
[2016-06-19] MEDS ORDERED: Haloperidol Lactate 5 MG/ML VIAL IM PRN (20:08)
[2016-06-19] MEDS ORDERED: hydrOXYzine pamoate 25 MG CAPSULE PO PRN (20:08)
[2016-06-19] MEDS ORDERED: Acetaminophen 325 MG TABLET PO PRN (20:08)
[2016-06-19] MEDS ORDERED: *HR* LORazepam 2 MG/ML VIAL IM PRN (20:08)
[2016-06-19] MEDS ORDERED: traZODone 50 MG TABLET PO PRN (20:08)
[2016-06-19] MEDS ORDERED: *HR* LORazepam 1 MG TABLET PO PRN (20:08)
[2016-06-19] MEDS ORDERED: MOM Conc 10 ML UD.LIQ PO PRN (20:08)
[2016-06-19] MEDS ORDERED: Mag Hydrox/Al Hydrox/Simeth 30 ML UDC PO PRN (20:08)
[2016-06-19] MEDS: cloNIDine HCl 0.1 MG TABLET PO SCH (21:05)
[2016-06-20] MEDS: Venlafaxine XR (24 HR) 150 MG CAP.ER.24H PO SCH (08:40)
[2016-06-20] MEDS: lamoTRIgine 25 MG TABLET PO SCH (08:40)
[2016-06-20] MEDS: cephALEXin 500 MG CAPSULE PO SCH ×2 (08:41→19:57)
[2016-06-20] MEDS: Neosporin OINT 15 GM TUBE TP SCH ×2 (08:44→21:30)
--- NOTE | 2016-06-20 15:02 | Psychiatry History & Physical ---
Date of Encounter: 06/20/16 Time of Encounter: 14:45 History of Present Illness Patient Stated Chief Complaint: "I cut my arm open with scissors." Medicare Admission Attestation: For traditional Medicare patients the provided hospital inpatient services are reasonable and necessary and in the case of services not specified as inpatient -only under 42 CFR 419.22 (n), that they are appropriately provided as inpatient services in accordance 42 CFR 412.3. For Critical Access Hospital the patient may reasonably be expected to be discharged or transferred to a hospital within 96 hours after admission to the Critical Access Hospital. Admitted From: Emergency Dept Plans for Post Hospital Care: Home History of Present Illness: Ms. Del Castillo is a 20 year old female who is admitted for the 2nd time at 1A psychiatric unit at [facility] in the past month. I interview her in my office with the door open, still private from other patients hearing. She tells me "I cut open my arm with scissors. I was having incessant thoughts of my ex that wouldn't go away so I cut on myself". She then proceeds to tell me that she was just at [facility] for 4 days inpatient and was released 2 days prior to doing this. She states that when she is alone, all she thinks about is hurting herself. She then proceeded to tell me that she has borderline personality disorder and asked if I know anything about. "I hope me telling you that helps you" She explains to me that borderline personality disorder means that she has a history of unstable relationships and asks "is there more to it than that? Can you tell me more about it". She denies any auditory/visual hallucinations, but states she is still having suicidal ideation. She talks repeatedly about her ex-boyfriend saying "when my mental health was getting bad he was a big support and comfort for me. Now that he is not there, I do not know what to do". She has been taking clonidine at night to sleep. And has depressive ruminations that go away briefly when she is around other people. She states that she is being increased on her Lamictal while at [facility]. She thinks that it may be helpful in stabilizing her mood previously. She has low energy and feels that she obsessively thinks about her ex-boyfriend and cannot get over the pain and the depression. Ask her what her goals are on the unit or what she thinks will help having had 4 psychiatric admissions in the last 6 weeks. She states "I would like to be a little less crazy when I get out of here". I ask her what she believes would help her. She states "I do not know" and giggles. Past Med Surg Social Fam HX - Past Medical History Medical history: no medical history - Past Psychiatric History Psychiatric history: Reports: anxiety, depression, prior suicide attempt, previous psychiatric hospitalization (3-4 admission in the past 4-6 weeks. ) Family psychiatric history: No Family History of Suicide: None - Social History Smoking Status: Never smoker Smokeless Tobacco Status: No Alcohol use: occasionally Drug use: none Occupational status: employed, student Current living situation: Home - Independent Activity Level: Independent ambulation Recent Out of Country Travel Within the Last 8 Weeks: No Exposure or Possible Exposure to Illness During Travel: No Medications & Allergies CloNIDine HCl 0.1 mg PO HS 06/19/16 [History] Lamotrigine [Lamictal] 50 mg PO DAILY 06/19/16 [History] Venlafaxine XR (24 HR) [Effexor XR] 150 mg PO DAILY 06/19/16 [History] Allergies No Known Allergies Allergy (Verified 05/26/16 13:00) Review of Systems Psychiatric: Reports: depression, anxiety, abnormal sleep pattern, suicidal ideation, change in appetite, anhedonia, memory loss, difficulty concentrating, hopelessness, irritability, mood swings Mental Status Exam Patient orientation: Yes Person, Yes Time, Yes Place, Yes Circumstance Level of alertness: Alert, Follows commands Patient appearance: Well Groomed, Obese Behavior: calm, cooperative Psychomotor activity: Normal Eye contact: Fleeting Contact (Looks down most of the time with her hair covering her eyes) Mood description: Depressed Affect description: flat Speech pattern: Normal rate, Normal rhythm, Normal tone, Appropriate Speech volume: Normal Thought process: Linear Thought content: Yes Suicidal ideation Attention span: Capable of Focused Attention Memory description: Grossly Intact Patient reliability: Reliable Historian Intelligence estimate: Average Judgment: Fair Insight: Partial Additional Findings: Patient is very straight forward in her presentation and is very open with me to discuss and inform me that she is a Borderline PD and asks me if I know what that is. She tells me the traits and behaviors they/she exhibit, and asks me if I could tell her more. I encouraged her to seek DBT, which she had reviously bee encouraged to do and refused in treatment, and talk to a therapist about it more. She talks about how her life is on hold regarding the break up of this relationship and how she would like to get on with her life, "If I could stay about of psych units" and giggles. I asked her why she was laughing, if she thought it was funny. She told me no she didn't and became very sober, very quickly. She said she did not realize she was laughing at something that was so severe. Results - Vital Signs Vital signs: Temp Pulse Resp BP Pulse Ox 99 F 71 16 113/70 99 06/20/16 08:29 06/20/16 08:29 06/20/16 08:29 06/20/16 08:29 06/19/16 16:08 - Labs Labs: Laboratory Last Values WBC 10.2 K/mcL (4.3-11.1) 06/19/16 16:12 RBC 4.51 M/mcL (3.82-4.97) 06/19/16 16:12 Hgb 13.2 g/dL (11.5-15.4) 06/19/16 16:12 Hct 39.9 % (35.3-44.9) 06/19/16 16:12 MCV 88.5 fL (83.0-100.0) 06/19/16 16:12 MCH 29.3 pg (28.0-33.3) 06/19/16 16:12 MCHC 33.1 g/dL (31.6-35.5) 06/19/16 16:12 RDW 13.0 % (11.5-14.5) 06/19/16 16:12 Plt Count 212 K/mcL (140-400) 06/19/16 16:12 MPV 10.8 fL (9.4-12.4) 06/19/16 16:12 Immature Gran % 0.3 % (0-4) 06/19/16 16:12 Seg Neutrophils % 76.0 % 06/19/16 16:12 Lymphocytes % 16.0 % 06/19/16 16:12 Monocytes % 7.3 % 06/19/16 16:12 Eosinophils % 0.2 % 06/19/16 16:12 Basophils % 0.2 % 06/19/16 16:12 Neutrophils # 7.8 K/mcL (1.6-8.9) 06/19/16 16:12 Lymphocytes # 1.6 K/mcL (0.6-4.6) 06/19/16 16:12 Monocytes # 0.8 K/mcL (0.0-1.3) 06/19/16 16:12 Eosinophils # 0.0 K/mcL (0.0-0.6) 06/19/16 16:12 Basophils # 0.0 K/mcL (0.0-0.2) 06/19/16 16:12 Sodium 139 mEq/L (136-145) 06/19/16 16:12 Potassium 4.0 mEq/L (3.5-4.5) 06/19/16 16:12 Chloride 109 mEq/L (98-109) 06/19/16 16:12 Carbon Dioxide 19 mEq/L (19-29) 06/19/16 16:12 BUN 16 mg/dL (7-20) 06/19/16 16:12 Creatinine 0.81 mg/dL (0.57-1.11) 06/19/16 16:12 Est GFR ( Amer) > 60 (> 60) 06/19/16 16:12 Est GFR (Non-Af Amer) > 60 (> 60) 06/19/16 16:12 BUN/Creatinine Ratio 20 (6-26) 06/19/16 16:12 Glucose 83 mg/dL (70-99) 06/19/16 16:12 Calculated Osmolality 288 (280-300) 06/19/16 16:12 Calcium 9.5 mg/dL (8.6-10.8) 06/19/16 16:12 Urine Color Yellow (Yellow) 06/19/16 15:25 Urine Clarity Clear (Clear) 06/19/16 15:25 Urine pH 5.5 pH Units (5.0-8.0) 06/19/16 15:25 Ur Specific [place] > 1.030 (1.010-1.025) H 06/19/16 15:25 Urine Protein 30 mg/dL (Neg-Trace) H 06/19/16 15:25 Urine Glucose (UA) Normal mg/dL (Normal) 06/19/16 15:25 Urine Ketones 15 mg/dL (Negative) H 06/19/16 15:25 Urine Blood Negative (Negative) 06/19/16 15:25 Urine Nitrite Negative (Negative) 06/19/16 15:25 Urine Bilirubin Negative (Negative) 06/19/16 15:25 Urine Urobilinogen Normal mg/dL (Normal) 06/19/16 15:25 Ur Leukocyte Esterase Negative (Negative) 06/19/16 15:25 Urine Microscopic RBC 3-5 per hpf (0-3) H 06/19/16 15:25 Urine Microscopic WBC 0-3 per hpf (0-3) 06/19/16 15:25 Ur Squamous Epith Cells Many per lpf (None-Few) H 06/19/16 15:25 Calcium Oxalate Crystal Present 06/19/16 15:25 Urine Bacteria Few per hpf (None-Few) 06/19/16 15:25 Hyaline Casts Few per lpf (None-Few) 06/19/16 15:25 Salicylates < 5.0 mg/dL (15-30) L 06/19/16 16:12 Urine Opiates Screen Negative ng/mL (Neqcty=454) 06/19/16 15:25 Acetaminophen 7.0 mcg/mL (10-30) L 06/19/16 16:12 Ur Barbiturates Screen Negative ng/mL (Qvcbkl=321) 06/19/16 15:25 Ur Phencyclidine Scrn Negative ng/mL (Cutoff=25) 06/19/16 15:25 Ur Amphetamines Screen Negative ng/mL (Runxps=8182) 06/19/16 15:25 U Benzodiazepines Scrn Negative ng/mL (Kguokh=415) 06/19/16 15:25 Urine Cocaine Screen Negative ng/mL (Cutoff= 300) 06/19/16 15:25 U Marijuana (THC) Screen Negative ng/mL (Cutoff = 50) 06/19/16 15:25 Ethyl Alcohol < 10 mg/dL (0-10) 06/19/16 16:12 Assessment and Plan (1) Depression Current visit: No Status: Acute Plan: Admit inpatient for safety and stabilization, Close observation, Suicide Precautions per unit protocol, Encourage participation in unit milieu, Group Therapy, Monitor sleep, Family/Supportive other meeting Risks, benefits, side effects, alternatives discussed w/pt: Yes (increase Lamictal to 75 mg po q day) Patient agreeable to treatment: Yes Plans for Post Hospital Care: Home Estimated Length of Stay (Days): 5 Qualifiers: Depression Type: major depressive disorder Major depression recurrence: recurrent Active/Remission status: currently active Major depression episode severity: severe Psychotic features: without psychotic features Qualified Code(s): F33.2 - Major depressive disorder, recurrent severe without psychotic features (2) Borderline personality disorder in adult Current visit: Yes Status: Acute Plan: Admit inpatient for safety and stabilization, Close observation, Suicide Precautions per unit protocol Risks, benefits, side effects, alternatives discussed w/pt: Yes Patient agreeable to treatment: Yes Plans for Post Hospital Care: Home Estimated Length of Stay (Days): 5
[2016-06-20] MEDS: cloNIDine HCl 0.1 MG TABLET PO SCH (19:57)
[2016-06-21] MEDS: lamoTRIgine 25 MG TABLET PO SCH ×2 (08:41→09:51)
[2016-06-21] MEDS: Venlafaxine XR (24 HR) 150 MG CAP.ER.24H PO SCH (08:41)
[2016-06-21] MEDS: cephALEXin 500 MG CAPSULE PO SCH ×2 (08:41→20:49)
[2016-06-21] MEDS: Neosporin OINT 15 GM TUBE TP SCH ×2 (11:00→13:10)
[2016-06-21] MEDS: cloNIDine HCl 0.1 MG TABLET PO SCH (20:49)
--- NOTE | 2016-06-22 00:24 | Psychiatry Progress Note ---
Date of Encounter: 06/21/16 Time of Encounter: 11:20 Subjective Interval history: The patient tells me today "I'm still about the same as I was yesterday". She denies any adverse side effects of the increase in Lamictal. She tells me that she thinks everything is going well. She states that she slept better last night. She tells me that she is still having thoughts of suicide and about her boyfriend. She continues to feel very tired but feels that her concentration is improving as she is working on [employer] and other puzzles. She thought more about going back to school in [place] to be around friends, believing that might be helpful. She states that she thought more to about DBT therapy and will talk to the social media editor and get that scheduled. She is interacting on the unit appropriately laughing often. She is observed coaching other patients and talking to them about their mental health. I asked her this anything else she wants to talk about she tells me "No.... have a great day" and smiles. I was told by nursing that she was angry that the dressing changes on her arm have been changed to Q day as opposed to 3 times a day. She ssaid to them, "I would like to look at a lot". "It" being the sutured laceration she self- inflicted over left antecubital. Review of Systems Psychiatric: Reports: depression, anxiety, abnormal sleep pattern, suicidal ideation, change in appetite, anhedonia, memory loss, difficulty concentrating, hopelessness, irritability, mood swings Objective: Exam Patient orientation: Yes Person, Yes Time, Yes Place, Yes Circumstance Level of alertness: Alert, Follows commands Patient appearance: Well Groomed, Obese Behavior: calm, cooperative Psychomotor activity: Normal Eye contact: Maintains Eye Contact Mood description: Euthymic/stable Affect description: congruent with mood Speech pattern: Normal rate, Normal rhythm, Normal tone, Appropriate Speech volume: Normal Thought process: Logical, Linear Thought content: Yes Suicidal ideation Judgment: Fair Insight: Partial Results - Vital Signs Vital Signs: Temp Pulse Resp BP Pulse Ox 98.4 F 83 16 111/73 99 06/21/16 21:00 06/21/16 21:00 06/21/16 21:00 06/21/16 21:00 02/01/17 16:08 Assessment and Plan (1) Depression Current visit: No Status: Acute Risks, benefits, side effects, alternatives discussed w/pt: Yes (increase Lamictal to 75 mg po q day) Patient agreeable to treatment: Yes Qualifiers: Depression Type: major depressive disorder Major depression recurrence: recurrent Active/Remission status: currently active Major depression episode severity: severe Psychotic features: without psychotic features Qualified Code(s): F33.2 - Major depressive disorder, recurrent severe without psychotic features (2) Borderline personality disorder in adult Current visit: Yes Status: Acute Risks, benefits, side effects, alternatives discussed w/pt: Yes Patient agreeable to treatment: Yes Consult Discharge Plan - Plan Referrals: [facility] [Outside] - 07/08/16 5:00 pm (The above appointment is with Erika Cruz.) [facility] [Outside] - 07/29/16 8:45 am (The above appointment is with Nichole Hankins, psychiatric prescriber. Please arrive 15 minutes early to complete paperwork. Please bring your insurance card, photo ID and medications in their original bottles. If you do not have insurance, bring proof of income to apply for the sliding fee scale. If you are unable to keep this appointment, 24 hour business notice of cancellation is expected. )
[2016-06-22] MEDS: cephALEXin 500 MG CAPSULE PO SCH ×2 (08:38→20:49)
[2016-06-22] MEDS: lamoTRIgine 25 MG TABLET PO SCH (08:38)
[2016-06-22] MEDS: Venlafaxine XR (24 HR) 150 MG CAP.ER.24H PO SCH (08:39)
[2016-06-22] MEDS: Neosporin OINT 15 GM TUBE TP SCH (09:54)
--- NOTE | 2016-06-22 14:14 | Psychiatry Progress Note ---
Date of Encounter: 06/22/16 Time of Encounter: 02:10 Subjective Interval history: Patient seen and interviewed. History and physical examination revealed. Patient appears anxious and nervous during the interview. Patient is endorsing hopelessness helplessness feelings. Still having suicidal thoughts and ideations off and on. Patient is encouraged to attend groups and participate in activities and start working on a safety plan. She is tolerating medications fairly well complain of poor sleep. Review of Systems Psychiatric: Reports: depression, anxiety, abnormal sleep pattern, suicidal ideation, change in appetite, anhedonia, memory loss, difficulty concentrating, hopelessness, irritability, mood swings Objective: Exam Patient orientation: Yes Person, Yes Time, Yes Place, Yes Circumstance Level of alertness: Alert, Follows commands Patient appearance: Well Groomed, Obese Behavior: calm, cooperative Psychomotor activity: Normal Eye contact: Maintains Eye Contact Mood description: Euthymic/stable Affect description: congruent with mood Speech pattern: Normal rate, Normal rhythm, Normal tone, Appropriate Speech volume: Normal Thought process: Logical, Linear Thought content: Yes Suicidal ideation Judgment: Fair Insight: Partial Results - Vital Signs Vital Signs: Temp Pulse Resp BP Pulse Ox 98.3 F 67 14 85/50 99 06/22/16 09:00 06/22/16 09:00 06/22/16 09:00 06/22/16 09:00 06/19/16 16:08 Assessment and Plan (1) Depression Current visit: No Status: Acute Plan: Continue hospitalization, Close observation, Suicide Precautions per unit protocol, Encourage participation in unit milieu, Group Therapy, Monitor sleep, Monitor appetite Additional Plan: DC trazodone and start Seroquel 100 at bedtime when necessary for insomnia Risks, benefits, side effects, alternatives discussed w/pt: Yes (increase Lamictal to 75 mg po q day) Patient agreeable to treatment: Yes Qualifiers: Depression Type: major depressive disorder Major depression recurrence: recurrent Active/Remission status: currently active Major depression episode severity: severe Psychotic features: without psychotic features Qualified Code(s): F33.2 - Major depressive disorder, recurrent severe without psychotic features (2) Borderline personality disorder in adult Current visit: Yes Status: Acute Plan: Continue hospitalization, Close observation, Suicide Precautions per unit protocol, Encourage participation in unit milieu, Group Therapy, Monitor sleep, Monitor appetite Risks, benefits, side effects, alternatives discussed w/pt: Yes Patient agreeable to treatment: Yes Consult Discharge Plan - Plan Referrals: [facility] [Outside] - 07/08/16 5:00 pm (The above appointment is with Erika Cruz.) [facility] [Outside] - 07/29/16 8:45 am (The above appointment is with Nichole Hankins, psychiatric prescriber. Please arrive 15 minutes early to complete paperwork. Please bring your insurance card, photo ID and medications in their original bottles. If you do not have insurance, bring proof of income to apply for the sliding fee scale. If you are unable to keep this appointment, 24 hour business notice of cancellation is expected. )
[2016-06-22] MEDS: cloNIDine HCl 0.1 MG TABLET PO SCH (20:49)
[2016-06-23] MEDS: Venlafaxine XR (24 HR) 150 MG CAP.ER.24H PO SCH (08:34)
[2016-06-23] MEDS: lamoTRIgine 25 MG TABLET PO SCH (08:34)
[2016-06-23] MEDS: cephALEXin 500 MG CAPSULE PO SCH ×2 (08:34→20:46)
[2016-06-23] MEDS: Neosporin OINT 15 GM TUBE TP SCH (10:03)
--- NOTE | 2016-06-23 12:25 | Psychiatry Progress Note ---
Date of Encounter: 06/23/16 Time of Encounter: 12:22 Subjective Interval history: Patient seen and interviewed. He started to notice improvement in her mood. Hopelessness helplessness suicidal ideations and impulsive symptoms were just to hurt herself have started to subside. Patient is becoming more confident and positive. Mood swings are a lot better. Sleep and appetite is improved. Attending groups participating in activities learning coping skills and is working on a safety plan Review of Systems Psychiatric: Reports: depression, anxiety Objective: Exam Patient orientation: Yes Person, Yes Time, Yes Place, Yes Circumstance Level of alertness: Alert, Follows commands Patient appearance: Well Groomed, Obese Behavior: calm, cooperative Psychomotor activity: Normal Eye contact: Maintains Eye Contact Mood description: Euthymic/stable Affect description: congruent with mood Speech pattern: Normal rate, Normal rhythm, Normal tone, Appropriate Speech volume: Normal Thought process: Logical, Linear Thought content: No Suicidal ideation, No Homicidal ideation, No Overt delusions Perceptual disturbances: No Auditory hallucinations, No Visual hallucinations Judgment: Fair Insight: Partial Results - Vital Signs Vital Signs: Temp Pulse Resp BP Pulse Ox 97.6 F 74 14 108/70 99 06/23/16 09:00 06/23/16 09:00 06/23/16 09:00 06/23/16 09:00 06/19/16 16:08 Assessment and Plan (1) Depression Current visit: No Status: Acute Plan: Continue hospitalization, Close observation, Suicide Precautions per unit protocol, Encourage participation in unit milieu, Group Therapy, Monitor sleep, Monitor appetite Additional Plan: Continue with current medications Risks, benefits, side effects, alternatives discussed w/pt: Yes (increase Lamictal to 75 mg po q day) Patient agreeable to treatment: Yes Qualifiers: Depression Type: major depressive disorder Major depression recurrence: recurrent Active/Remission status: currently active Major depression episode severity: severe Psychotic features: without psychotic features Qualified Code(s): F33.2 - Major depressive disorder, recurrent severe without psychotic features (2) Borderline personality disorder in adult Current visit: Yes Status: Acute Plan: Continue hospitalization, Close observation, Suicide Precautions per unit protocol, Encourage participation in unit milieu, Group Therapy, Monitor sleep, Monitor appetite Risks, benefits, side effects, alternatives discussed w/pt: Yes Patient agreeable to treatment: Yes Consult Discharge Plan - Plan Referrals: [facility] [Outside] - 07/08/16 5:00 pm (The above appointment is with Erika Cruz.) [facility] [employer] [facility] [Outside] - 07/29/16 8:45 am (The above appointment is with Nichole Hankins, psychiatric prescriber. Please arrive 15 minutes early to complete paperwork. Please bring your insurance card, photo ID and medications in their original bottles. If you do not have insurance, bring proof of income to apply for the sliding fee scale. If you are unable to keep this appointment, 24 hour business notice of cancellation is expected. )
[2016-06-23] MEDS: cloNIDine HCl 0.1 MG TABLET PO SCH (20:46)
[2016-06-24] MEDS: Venlafaxine XR (24 HR) 150 MG CAP.ER.24H PO SCH (08:37)
[2016-06-24] MEDS: cephALEXin 500 MG CAPSULE PO SCH ×2 (08:37→21:11)
[2016-06-24] MEDS: lamoTRIgine 25 MG TABLET PO SCH (08:37)
--- NOTE | 2016-06-24 12:37 | Psychiatry Progress Note ---
Date of Encounter: 06/24/16 Time of Encounter: 12:32 Subjective Interval history: Patient was seen for follow-up. Nursing staff reports she is denying suicidal ideation and participating. She is interested in getting into DBT treatment and this will be scheduled. She is tolerating medication well without side effects. Her discharge plans are ongoing, with emphasis on prevention of suicidal behavior and intense therapy. Review of Systems Psychiatric: Reports: depression, anxiety, anhedonia Objective: Exam Patient orientation: Yes Person, Yes Time, Yes Place, Yes Circumstance Level of alertness: Alert, Follows commands Patient appearance: Well Groomed, Obese Behavior: calm, cooperative Psychomotor activity: Normal Eye contact: Maintains Eye Contact Mood description: Euthymic/stable Affect description: congruent with mood Speech pattern: Normal rate, Normal rhythm, Normal tone, Appropriate Speech volume: Normal Thought process: Logical, Linear Thought content: No Suicidal ideation, No Homicidal ideation, No Overt delusions Perceptual disturbances: No Auditory hallucinations, No Visual hallucinations Judgment: Fair Insight: Partial Results - Vital Signs Vital Signs: Temp Pulse Resp BP Pulse Ox 98.5 F 72 20 107/72 99 06/24/16 08:43 06/24/16 08:43 06/24/16 08:43 06/24/16 08:43 06/19/16 16:08 Assessment and Plan (1) Suicidal ideations Current visit: Yes Status: Acute Plan: Continue hospitalization, Close observation, Suicide Precautions per unit protocol, Encourage participation in unit milieu, Group Therapy, Monitor sleep, Monitor appetite Risks, benefits, side effects, alternatives discussed w/pt: Yes Patient agreeable to treatment: Yes Consult Discharge Plan - Plan Referrals: [facility] [Outside] - 07/08/16 5:00 pm (The above appointment is with Erika Cruz.) [facility] [employer] [place] [Outside] - 07/29/16 8:45 am (The above appointment is with Nichole Hankins, psychiatric prescriber. Please arrive 15 minutes early to complete paperwork. Please bring your insurance card, photo ID and medications in their original bottles. If you do not have insurance, bring proof of income to apply for the sliding fee scale. If you are unable to keep this appointment, 24 hour business notice of cancellation is expected. )
[2016-06-24] MEDS: Neosporin OINT 15 GM TUBE TP SCH (12:48)
[2016-06-24] MEDS: cloNIDine HCl 0.1 MG TABLET PO SCH (21:11)
[2016-06-25 08:48] VITALS: BP 103/75
[2016-06-25] MEDS: Neosporin OINT 15 GM TUBE TP SCH (08:56)
[2016-06-25] MEDS: lamoTRIgine 25 MG TABLET PO SCH (08:57)
[2016-06-25] MEDS: Venlafaxine XR (24 HR) 150 MG CAP.ER.24H PO SCH (08:57)
[2016-06-25] MEDS: cephALEXin 500 MG CAPSULE PO SCH (08:57)
--- NOTE | 2016-06-25 12:23 | Discharge Summary ---
Date of Encounter: 06/25/16 Time of Encounter: 12:17 Diagnosis - Discharge Diagnosis (1) Suicidal ideations Priority: Secondary Status: Acute (2) Depression Priority: Primary Status: Acute Qualifiers: Depression Type: major depressive disorder Major depression recurrence: recurrent Active/Remission status: currently active Major depression episode severity: severe Psychotic features: without psychotic features Qualified Code(s): F33.2 - Major depressive disorder, recurrent severe without psychotic features Medications - Discharge Medications Prescriptions: CloNIDine HCl 0.1 mg PO HS #30 tablet Lamotrigine [Lamictal] 75 mg PO DAILY #90 tablet Quetiapine Fumarate [Seroquel] 100 mg PO HS PRN #30 tablet PRN Reason: Insomnia Venlafaxine XR (24 HR) [Effexor Xr] 150 mg PO DAILY #30 cap.er.24h CloNIDine HCl 0.1 mg PO HS #30 tablet 06/25/16 [Rx] Lamotrigine [Lamictal] 75 mg PO DAILY #90 tablet 06/25/16 [Rx] Quetiapine Fumarate [Seroquel] 100 mg PO HS PRN #30 tablet 06/25/16 [Rx] Venlafaxine XR (24 HR) [Effexor Xr] 150 mg PO DAILY #30 cap.er.24h 06/25/16 [Rx] Allergies No Known Allergies Allergy (Verified 05/26/16 13:00) Provider Date of admission: 06/19/16 19:40 Primary care physician: PCP NO Discharging clinician: Gureo Rhoades Assessment and Plan - Patient/Caregiver Discharge Instructions Activity: resume usual activities as tolerated Diet: regular diet - Follow up Plan Follow up with: Providers, For [Other] (You have been referred for DBT individual and group services. Office staff will contact you directly within 7 days to arrange your appointment. If you have a deductible for outpatient mental health services, payment is required up front for services rendered ($125 for mental health intakes, $80 for therapy follow up visits) and additional appointments can't be scheduled until these fees are paid in advance until deductibles are met.) [facility] [Outside] - 07/08/16 5:00 pm (The above appointment is with Erika Cruz.) [facility] [Outside] - 07/29/16 8:45 am (The above appointment is with Nichole Hankins, psychiatric prescriber. Please arrive 15 minutes early to complete paperwork. Please bring your insurance card, photo ID and medications in their original bottles. If you do not have insurance, bring proof of income to apply for the sliding fee scale. If you are unable to keep this appointment, 24 hour business notice of cancellation is expected. ) Functional capacity at discharge: independent ambulation Overall status at discharge: Stable Disposition: Home, Self-Care Hospital Course Hospital course: Ms. Del Castillo is a 20 year old female admitted for evaluation and treatment of suicide attempts by cutting her arm that required sutures in a suicide attempt. This was the fourth psychiatric admission in the last 6 weeks. Patient medication was reviewed Lamictal dose was increased from 50-75 she continued on Effexor and clonidine also used Seroquel at bedtime. Patient tolerated medication without any side effects. She participated in activities and groups. Discharge plans included scheduling appointments for counseling, medication management and DBT therapy. Prior to discharge patient was medically stable, not suicidal, showing improvement insights and judgments and future oriented. - Time Spent with Patient Total time spent providing and/or coordinating discharge services: Less than 30 minutes Quality - Multiple Antipsychotics Patient discharged on 2 or more antipsychotic medications: No Procedures - Procedures Procedures: Medication Management, Crisis Stabilization, Supportive Therapy, Group Therapy, Psychoeducational Therapy Mental Status Exam - Mental Status Exam Patient orientation: Yes Person, Yes Time, Yes Place, Yes Circumstance Level of alertness: Alert, Follows commands Patient appearance: Well Groomed, Obese Behavior: calm, cooperative Psychomotor activity: Normal Eye contact: Maintains Eye Contact Mood description: Euthymic/stable Affect description: congruent with mood Speech pattern: Normal rate, Normal rhythm, Normal tone, Appropriate Speech Volume: Normal Thought process: Logical, Linear Thought Content: No Suicidal ideation, No Homicidal ideation, No Overt delusions Perceptual Disturbances: No Auditory hallucinations, No Visual hallucinations Judgment: Fair Insight: Partial
== END 2016-06-25 15:10 | disposition home or self-care (01) | DRG 885 ==
LOC: EMEROO 14:37 → SUATTDRO 19:40 → 1ANU 19:40
PROVIDERS: ADMIT Psychiatry & Neurology Psychiatry; ATTEND Psychiatry & Neurology Psychiatry